=== PATIENT | female | born 1995 | race Caucasian/White ===

== ENCOUNTER 2016-08-28 10:17 | Emergency (ER) | payer BC, OTHER ==
[2016-08-28] MEDS ORDERED: Sodium Chloride 0.9% 10 ML Syringe FLUSH PRN (10:42)
[2016-08-28] MEDS ORDERED: HYDROmorphone 0.5 MG/0.5 ML Syringe IVPUSH ONE ×2 (10:46→11:59)
--- NOTE | 2016-08-28 12:17 | CT ---
Head CT Technique: Multiple axial sections through the brain were obtained. Intravenous contrast was not utilized. Comparison: No previous study. Findings: Ventricles along with basal cisterns and sulci over the convexities appear within normal limits for the patient's age. No abnormal parenchymal densities are seen. No evidence of intracranial hemorrhage. No midline shift or mass effect is seen. Calcified drusen noted within both posterior orbits. Bone window settings were reviewed which shows the visualized sinuses to appear clear. No acute calvarial abnormality is seen. Impression: 1. Calcified drusen within both posterior orbits. 2. No additional abnormality is identified on noncontrast head CT study. Diagnostic code #1
[2016-08-28] MEDS ORDERED: Prochlorperazine 10 MG/2 ML SDV IVPUSH ONE (12:46)
[2016-08-28] MEDS ORDERED: Ketorolac 30 MG/ML SDV IVPUSH ONE (12:47)
[2016-08-28] MEDS ORDERED: diphenhydrAMINE 50 MG/ML SDV IVPUSH ONE (12:47)
--- NOTE | 2016-08-28 12:58 | EDM.PDOC ---
ED HPI EYE COMPLAINT - General Chief Complaint: Eye Problems Stated Complaint: BLURRY VISION- SENT BY EYE DOCTOR Time Seen by Provider: 08/28/16 10:26 Source: Reports: Patient, Provider History Limitations: Reports: No limitations - History of Present Illness INITIAL COMMENTS - FREE TEXT/NARRATIVE: The patient presents with vision changes over the past month. She has had blurred vision but no double vision along with headaches. She denies numbness or weakness. Her mother has a history of Arnold Chiari malformation and needed surgery. She is worried she may have it. 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 He sent her over here for MRI. She denies any medical problems. Timing/Duration: Reports: Week(s): (4) Location: both Quality: Reports: Pressure Severity: moderate Improves with: Reports: None Worsens with: Reports: None Associated Symptoms (Eye): Reports: pain, decreased/blurred - Related Data Allergies/ADRs: Allergies No Known Allergies Allergy (Verified 08/28/16 10:35) Home Meds: Ambulatory Orders Medication Instructions Recorded Confirmed Esomeprazole Magnesium [Nexium 20 mg PO DAILY 08/28/16 08/28/16 24Hr] Past Medical History HEENT History: Reports: None Cardiovascular History: Reports: None Respiratory History: Reports: None Gastrointestinal History: Reports: GERD, Other (see below) Other Gastrointestinal History: epigastric pain Genitourinary History: Reports: None 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: 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 History: Reports: None Neurological History: Reports: None Psychiatric History: Reports: None Endocrine/Metabolic History: Reports: None Hematologic History: Reports: None Immunologic History: Reports: None Oncologic (Cancer) History: Reports: None Other Dermatologic History: cyst removal from hand - Past Surgical History Head Surgeries/Procedures: Reports: None GI Surgical History: Reports: Cholecystectomy Social & Family History - Tobacco Use Smoking Status *Q: Current Every Day Smoker Years of Tobacco use: 6 Packs/Tins Daily: 0.5 - Caffeine Use Caffeine Use: Reports: None - Recreational Drug Use Recreational Drug Use: No - Living Situation & Occupation Living situation: Reports: single, with family Occupation: employed ([employer]) ED ROS GENERAL - Review of Systems Review Of Systems: See Below Constitutional: Reports: no symptoms HEENT: Reports: Vision change Respiratory: Reports: No Symptoms Cardiovascular: Reports: No symptoms Endocrine: Reports: no symptoms GI/Abdominal: Reports: No symptoms : Reports: no symptoms 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: Reports: no symptoms Skin: Reports: no symptoms Neurological: Reports: Headache ED EXAM GENERAL W FULL EYE - Physical Exam Exam: See Below Exam Limited By: No limitations General Appearance: alert, no apparent distress Eye Exam: bilateral eye: EOMI, PERRL Eyelids: bilateral: normal appearance Conjunctiva & Sclera: bilateral: normal appearance Extraocular Movements: bilateral: intact Nose: normal inspection Head: atraumatic, normocephalic Neck: normal inspection Respiratory/Chest: no respiratory distress, lungs clear, normal breath sounds GI/Abdominal: soft, non tender, no organomegaly Extremities: normal inspection Neurological: alert, oriented, no motor/sensory deficits Course - Vital Signs Last Recorded V/S: Last Vital Signs Temp 97.3 F 08/28/16 10:20 Pulse 84 08/28/16 10:20 Resp 16 08/28/16 10:20 BP 112/70 08/28/16 10:20 Pulse Ox 97 08/28/16 10:20 - Orders/Labs/Meds Orders: Active Orders 24 hr Category Date Time Status Cardiac Monitoring [RC] . DIRECTED Care 08/28/16 10:45 Active Peripheral IV Care [RC] . DIRECTED Care 08/28/16 10:46 Active Sodium Chloride 0.9% [Saline Flush] Med 08/28/16 10:42 Active 10 ml FLUSH ASDIRECTED PRN Peripheral IV Insertion Adult [OM.PC] Stat Oth 08/28/16 10:42 Ordered Medication Orders Sodium Chloride (Saline Flush) 10 ml FLUSH ASDIRECTED PRN PRN Reason: Keep Vein Open Last Admin: 08/28/16 11:09 Dose: 10 ml Labs: Laboratory Tests 08/28/16 08/28/16 08/28/16 Range/Units 10:55 10:55 10:55 WBC 8.47 (3.98-10.04) K/mm3 RBC 4.91 (3.98-5.22) M/mm3 Hgb 13.5 (11.2-15.7) gm/L Hct 41.6 (34.1-44.9) % MCV 84.7 (79.4-94.8) fl MCH 27.5 (25.6-32.2) pg MCHC 32.5 (32.2-35.5) g/dl RDW Std Deviation 44.4 (36.4-46.3) fL Plt Count 298 (182-369) K/mm3 MPV 9.9 (9.4-12.3) fl Neut % (Auto) 64.1 (34.0-71.1) % Lymph % (Auto) 26.4 (19.3-51.7) % Winkler % (Auto) 7.9 (4.7-12.5) % Eos % (Auto) 1.2 (0.7-5.8) Baso % (Auto) 0.2 (0.1-1.2) % Neut # (Auto) 5.42 (1.56-6.13) K/mm3 Lymph # (Auto) 2.24 (1.18-3.74) K/mm3 Winkler # (Auto) 0.67 H (0.24-0.36) K/mm3 Eos # (Auto) 0.10 (0.04-0.36) K/mm3 Baso # (Auto) 0.02 (0.01-0.08) K/mm3 Sodium 142 (136-145) mEq/L Potassium 4.2 (3.5-5.1) mEq/L Chloride 107 (98-107) mEq/L Carbon Dioxide 25 (21-32) mEq/L Anion Gap 14.2 (5-15) BUN 13 (7-18) mg/dL Creatinine 0.7 (0.55-1.02) mg/dL Est Cr Clr Drug Dosing 114.40 mL/min Estimated GFR (MDRD) > 60 (>60) mL/min BUN/Creatinine Ratio 18.6 H (14-18) Glucose 97 (74-106) mg/dL Calcium 9.0 (8.5-10.1) mg/dL Total Bilirubin 0.4 (0.2-1.0) mg/dL AST 20 (15-37) U/L ALT 68 H (14-59) U/L Alkaline Phosphatase 99 (46-116) U/L Troponin I < 0.017 (0.00-0.056) ng/mL Total Protein 7.6 (6.4-8.2) g/dl Albumin 3.9 (3.4-5.0) g/dl Globulin 3.7 gm/dL Albumin/Globulin Ratio 1.1 (1-2) HCG, Qual Negative (NEGATIVE) Meds: Medications Generic Name Dose Route Start Last Admin Trade Name Freherb PRN Reason Stop Dose Admin Sodium Chloride 10 ml 08/28/16 10:42 08/28/16 11:09 Saline Flush FLUSH 10 ml ASDIRECTED PRN Administration Keep Vein Open Discontinued Medications Generic Name Dose Route Start Last Admin Trade Name Wesley PRN Reason Stop Dose Admin Diphenhydramine HCl 50 mg 08/28/16 12:47 08/28/16 13:38 Benadryl IVPUSH 08/28/16 12:48 50 mg ONETIME ONE Administration Hydromorphone HCl 0.5 mg 08/28/16 10:46 08/28/16 11:07 Dilaudid IVPUSH 08/28/16 10:47 0.5 mg ONETIME ONE Administration Hydromorphone HCl 0.5 mg 08/28/16 11:59 08/28/16 12:06 Dilaudid IVPUSH 08/28/16 12:00 0.5 mg ONETIME ONE Administration Ketorolac Tromethamine 30 mg 08/28/16 12:47 08/28/16 13:40 Toradol IVPUSH 08/28/16 12:48 30 mg ONETIME ONE Administration Prochlorperazine Edisylate 10 mg 08/28/16 12:46 08/28/16 13:36 Compazine IVPUSH 08/28/16 12:47 10 mg ONETIME ONE Administration - Re-Assessments/Exams Free Text/Narrative Re-Assessment/Exam: 08/28/16 12:59 I ordered an IV, zofran 4mg IV and dilaudid. I will get a CT of her head and labs. Her labs looked good. The CT shows calcified drusen within both posterior orbits. I have an MRI of her brain ordered. She had more pain so I ordered another dose of dilaudid. That did not help so I will try some compazine 10mg IV, toradol 30mg IV and benadryl 50mg IV. 08/28/16 14:04 The MRI of her brain showed an incidental retention cyst. She feels better. She just found out her grandfather and she needs to go. It appears this may be the calcified drusens. Departure - Departure Time of Disposition: 14:10 Disposition: Home, Self-Care 01 Condition: good Clinical Impression: Drusen of eye Headache Qualifiers: Headache type: unspecified Headache chronicity pattern: unspecified pattern Intractability: not intractable Qualified Code(s): R51 - Headache Referrals: Amber Krishnan PA [Primary Care Provider] - 1 Week Michael Betancourt MD [Physician] - 2 Weeks Forms: ED Department Discharge Additional Instructions: Follow up with Dr Escalera within a week. Follow up with Dr Mccallum the neurologist at [facility] in [place]. Please take A-reds and fish oil to help with the drusens. Please return if your headache is worse, if you have numbness or weakness, or vision changes. - My Orders Last 24 Hours: My Active Orders 08/28/16 10:42 Sodium Chloride 0.9% [Saline Flush] 10 ml FLUSH ASDIRECTED PRN Peripheral IV Insertion Adult [OM.PC] Stat 08/28/16 10:45 Cardiac Monitoring [RC] . DIRECTED 08/28/16 10:46 Peripheral IV Care [RC] . DIRECTED - Assessment/Plan Last 24 Hours: My Active Orders 08/28/16 10:42 Sodium Chloride 0.9% [Saline Flush] 10 ml FLUSH ASDIRECTED PRN Peripheral IV Insertion Adult [OM.PC] Stat 08/28/16 10:45 Cardiac Monitoring [RC] . DIRECTED 08/28/16 10:46 Peripheral IV Care [RC] . DIRECTED
--- NOTE | 2016-08-28 13:42 | MR ---
MRI brain Technique: T1 sagittal; T2, T2 FLAIR, diffusion and T1 axial; T1 FLAIR coronal images were also obtained through the brain. Comparison: Previous head CT study performed earlier on the same day. Findings: Right and left globes are symmetric. No retrobulbar mass is seen. Extraocular muscles and optic nerves are symmetric. Ventricles along with basal cisterns and sulci over convexities are within normal limits. Normal signal void is seen within the major cerebral arteries within the skull base. Small retention cyst incidentally is noted within the upper right maxillary sinus measuring 1.0 cm. No abnormal signal is seen within the brain parenchyma. No midline shift or mass effect is seen. No acute diffusion abnormalities are identified. Impression: 1. Incidental retention cyst. MRI study of the brain is otherwise unremarkable. Diagnostic code #2
[2016-08-28 14:26] VITALS: BP 128/60
== END 2016-08-28 14:15 | disposition home or self-care (01) ==
LOC: JD.ED 10:17 → SUPCPDRO 10:17 → JD.ED 14:15
DX: H47.323 Drusen of optic disc, bilateral (principal); R51 Headache; K21.9 Gastro-esophageal reflux disease without esophagitis; F17.200 Nicotine dependence, unspecified, uncomplicated
CPT/HCPCS: 36415; 70450; 70551; 80053; 84484; 84703; 85025; 96374; 96375; 96376; 99284; J0780; J1170; J1200; J1885; J7050

== ENCOUNTER 2016-11-02 06:22 | Emergency (ER) | payer BC, MEDICAID ==
--- NOTE | 2016-11-02 06:45 | EDM.PDOC ---
ED HPI GENERAL MEDICAL PROBLEM - General Chief Complaint: Lower Extremity Injury/Pain Stated Complaint: RT KNEE PAIN Time Seen by Provider: 11/02/16 06:39 Source of Information: Reports: Patient History Limitations: Reports: No Limitations - History of Present Illness INITIAL COMMENTS - FREE TEXT/NARRATIVE: 21-year-old female presents the ED with reported fall in the parking lot at [employer] last evening at about 2130 hours. She fell with direct blow to the anterior aspect of her right knee. Overnight the swelling is increased traumatically in over the kneecap and she is unable to weight-bear without keeping the leg extremely straight. She states the pain kept her awake a good portion of the night. There is a superficial abrasions over the kneecap as well. She believes her tetanus toxoid is up to date. Onset: Sudden Onset Date: 11/01/16 Onset Time: 21:30 (Tripped up and fell in the parking lot at [email or web address] last night.) Duration: Hour(s):, Getting Worse Location: Reports: Lower Extremity, Right (Right knee.) Quality: Reports: Burning, Throbbing Severity: Moderate Improves with: Reports: None Worsens with: Reports: None Context: Reports: Other (Slipped and fell.). 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 Right Knee Pain Score (Numeric/FACES): 9 - Related Data Allergies Allergy/AdvReac Type Severity Reaction Status Date / Time No Known Allergies Allergy Verified 11/02/16 06:31 Home Meds: Home Meds oxyCODONE HCl/Acetaminophen [Percocet 5-325 mg Tablet] 1 - 2 each PO Q4H PRN # 20 tablet 11/02/16 [Rx] Past Medical History HEENT History: Reports: None Cardiovascular History: Reports: None Respiratory History: Reports: None Gastrointestinal History: Reports: GERD Other Gastrointestinal History: epigastric pain Genitourinary History: Reports: None 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: 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 History: Reports: None Neurological History: Reports: None Psychiatric History: Reports: None Endocrine/Metabolic History: Reports: None Hematologic History: Reports: None Immunologic History: Reports: None Oncologic (Cancer) History: Reports: None Other Dermatologic History: cyst removal from hand - Past Surgical History GI Surgical History: Reports: Cholecystectomy 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 Surgical History: Reports: Arthroscopic Knee (Left knee.) Social & Family History - Family History Family Medical History: Noncontributory - Tobacco Use Smoking Status *Q: Current Every Day Smoker Years of Tobacco use: 5 Packs/Tins Daily: 0.5 - Caffeine Use Caffeine Use: Reports: Coffee, Energy Drinks - Recreational Drug Use Recreational Drug Use: No - Living Situation & Occupation Living situation: Reports: Single, with Family Occupation: Employed Review of Systems - Review of Systems Review Of Systems: See Below Constitutional: Reports: No Symptoms Eyes: Reports: No Symptoms Ears: Reports: No Symptoms Nose: Reports: No Symptoms Mouth/Throat: Reports: No Symptoms Respiratory: Reports: No Symptoms Cardiovascular: Reports: No Symptoms GI/Abdominal: Reports: No Symptoms Genitourinary: Reports: No Symptoms 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: Reports: Joint Pain (Right knee. See history present illness) Skin: Reports: No Symptoms Neurological: Reports: No Symptoms Psychiatric: Reports: No Symptoms ED EXAM, GENERAL - Physical Exam Exam: See Below Exam Limited By: No Limitations General Appearance: Alert, Moderate Distress (Very apprehensive about any examination of the knee.) Peripheral Pulses: 3+: Posterior Tibial (L), Posterior Tibial (R), Dorsalis Pedis (L), Dorsalis Pedis (R) Extremities: Other (He has marked swelling over the patella of the right knee. There are superficial abrasions as well. There is no true effusion in the knee. Concern for possible patellar fracture evident on exam. She is very reluctant to try and flex the knee.) Neurological: Alert, Oriented, CN II-XII Intact, Normal Cognition. No: Normal Gait Psychiatric: Normal Affect, Anxious Skin Exam: Warm, Dry, Intact, Normal Color Course - Vital Signs Last Recorded V/S: Last Vital Signs Temp 36.2 C 11/02/16 06:27 Pulse 89 11/02/16 06:27 Resp 18 11/02/16 06:27 BP 117/60 11/02/16 06:27 Pulse Ox 97 11/02/16 06:27 - Orders/Labs/Meds Orders: Active Orders 24 hr Category Date Time Status Knee 3V Rt [CR] Stat Exams 11/02/16 06:42 Taken Meds: Medications Discontinued Medications Generic Name Dose Route Start Last Admin Trade Name Freq PRN Reason Stop Dose Admin Ibuprofen 600 mg 11/02/16 06:46 Motrin PO 11/02/16 06:47 ONETIME ONE Metoclopramide HCl 10 mg 11/02/16 06:47 Reglan PO 11/02/16 06:48 ONETIME ONE Oxycodone/Acetaminophen 2 tab 11/02/16 06:47 Percocet 325-5 Mg PO 11/02/16 06:48 ONETIME ONE - Radiology Interpretation Free Text/Narrative:: 21-year-old female reports that she tripped up and fell with direct blow to her right knee last night at [employer] at about 2130 hours. Overnight the areas become more painful and more swollen. Today she can weight-bear but with only walking with her leg typically straight. Examination reveals marked swelling over the prepatellar bursa and the patella itself. Appears to be no true knee effusion. Pain limits ability to examine ligament structures. Plan x- rays of the knee will be done first to see if there is a fracture of the patella. - Re-Assessments/Exams Free Text/Narrative Re-Assessment/Exam: 11/02/16 07:05 x-rays of the right knee are within normal limits. There is no obvious effusion in the joint. No bony injuries identified particular to the patella. Clinically she has developed a prepatellar bursitis or hemorrhage into the prepatellar bursa that is causing most of her pain and limited range of motion. Plan she'll be placed in a short knee immobilizer and because walking nonweightbearing for the next 3-5 days. She will use Aleve 2 tablets every 8 hours for reduction of pain and inflammation. I will send her home with 16 tablets of Percocet 5 325 one or 2 every 4-6 hours for pain relief not controlled by Aleve alone. She has limited cover her sugars today and she is off work for the next 3-4 days. Advise to cleanse her wound and apply bacitracin ointment to the superficial abrasion on the patella. Departure - Departure Time of Disposition: 07:07 Disposition: Home, Self-Care 01 Condition: fair Clinical Impression: Prepatellar bursitis of right knee Contusion, knee Qualifiers: Encounter type: initial encounter Laterality: left Qualified Code(s): S80.02XA - Contusion of left knee, initial encounter - Discharge Information Prescriptions: oxyCODONE HCl/Acetaminophen [Percocet 5-325 mg Tablet] 1 - 2 each PO Q4H PRN # 20 tablet PRN Reason: pain relief. Forms: ED Department Discharge Additional Instructions: Evaluation in the emergency room this morning in regards to a fall he sustained last night with blunt force trauma to the right anterior knee. Swelling is localized to the patella and prepatellar bursa on top of the kneecap. X-rays of the knee were obtained and do not reveal any fractures or true joint effusion. Recommend treatment to be short knee immobilizer on during the day and off at night. Nonweightbearing crutch walking for the next 3-5 days. Ice pack to the area one half hour out of every 4 hours to reduce swelling. Topical antibiotic such as bacitracin or Polysporin to the abrasions at least once daily for the next 3-5 days to prevent secondary wound infection. Suggest Aleve 2 tablets every 8 hours to reduce pain and inflammation. He is Percocet tablets 5-325 one or 2 every 4-6 hours for pain not relieved by Aleve alone. Followup with personal physician if unable to return to work as planned next week. - My Orders Last 24 Hours: My Active Orders 11/02/16 06:42 Knee 3V Rt [CR] Stat - Assessment/Plan Last 24 Hours: My Active Orders 11/02/16 06:42 Knee 3V Rt [CR] Stat
[2016-11-02] MEDS ORDERED: Ibuprofen 600 MG Tab PO ONE (06:46)
[2016-11-02] MEDS ORDERED: Metoclopramide 10 MG Tab PO ONE (06:47)
[2016-11-02] MEDS ORDERED: Acetaminophen/oxyCODONE 325-5 MG Tab PO ONE (06:47)
[2016-11-02 09:07] VITALS: BP 110/64
--- NOTE | 2016-11-02 09:39 | CR ---
Right knee: AP, lateral and sunrise patellar views of the right knee were obtained. Comparison: No previous knee study. Detached anterior tibial tuberosity is seen which appears old. Patellofemoral joint appears normal. Medial and lateral joint spaces are maintained in height. No acute fracture or other abnormality is seen. Impression: 1. Incidental finding. Nothing acute is seen on three-view right knee exam. Diagnostic code #2
== END 2016-11-02 09:07 | disposition home or self-care (01) ==
LOC: JD.ED 06:22
DX: S80.02XA Contusion of left knee, initial encounter (principal); M70.41 Prepatellar bursitis, right knee; Z90.49 Acquired absence of other specified parts of digestive tract; Z98.890 Other specified postprocedural states; F17.210 Nicotine dependence, cigarettes, uncomplicated; W19.XXXA Unspecified fall, initial encounter; Y92.481 Parking lot as the place of occurrence of the external cause
CPT/HCPCS: 73562; 99283; A9270

== ENCOUNTER 2016-12-29 01:01 | Emergency (ER) | payer MEDICAID ==
[2016-12-29 01:12] VITALS: BP 116/82
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
== END 2016-12-29 05:06 | disposition home or self-care (01) ==
LOC: JD.ED 01:01
DX: T76.21XA Adult sexual abuse, suspected, initial encounter (principal); K21.9 Gastro-esophageal reflux disease without esophagitis; F17.210 Nicotine dependence, cigarettes, uncomplicated; Z90.49 Acquired absence of other specified parts of digestive tract
CPT/HCPCS: 80306; 99283

== ENCOUNTER 2017-05-03 17:42 | Emergency (ER) | payer MEDICAID ==
[2017-05-03 18:06] VITALS: BP 118/87
[2017-05-03] MEDS ORDERED: Ketorolac 60 MG/2 ML SDV IM ONE (18:19)
--- NOTE | 2017-05-03 18:30 | EDM.PDOC ---
ED HPI GENERAL MEDICAL PROBLEM - General Chief Complaint: ENT Problem Stated Complaint: POSS EAR INFECTION Time Seen by Provider: 05/03/17 18:05 Source of Information: Reports: Patient History Limitations: Reports: No Limitations - History of Present Illness INITIAL COMMENTS - FREE TEXT/NARRATIVE: 21 year old female presents for evaluation and treatment of left ear pain. Patient reports she has had a sore throat for the last 5 days. Today she then developed severe left ear pain. Current associated symptoms of nausea, malaise, headaches, cough, fevers and chills. Denies any vomiting. Denies any recent travel. Patient did get a flu shot this year. left ear/throat Pain Score (Numeric/FACES): 7 - Related Data Allergies Allergy/AdvReac Type Severity Reaction Status Date / Time No Known Allergies Allergy Verified 05/03/17 18:06 Home Meds: Home Meds Acetaminophen/oxyCODONE [Percocet 325-5 MG] 1 tab PO Q6H PRN #6 tablet 05/03/17 [Rx] Amoxicillin 500 mg PO Q8HR #60 capsule 05/03/17 [Rx] Past Medical History - Past Health History Medical/Surgical History: Denies Medical/Surgical History HEENT History: Reports: None Cardiovascular History: Reports: None Respiratory History: Reports: None Gastrointestinal History: Reports: GERD Other Gastrointestinal History: epigastric pain Genitourinary History: Reports: None 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: 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 History: Reports: None Neurological History: Reports: None Psychiatric History: Reports: None Endocrine/Metabolic History: Reports: None Hematologic History: Reports: None Immunologic History: Reports: None Oncologic (Cancer) History: Reports: None Other Dermatologic History: cyst removal from hand - Past Surgical History Head Surgeries/Procedures: Reports: None GI Surgical History: Reports: Cholecystectomy 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 Surgical History: Reports: Arthroscopic Knee Social & Family History - Family History Family Medical History: Noncontributory - Tobacco Use Smoking Status *Q: Current Every Day Smoker Years of Tobacco use: 3 Packs/Tins Daily: 0.5 - Caffeine Use Caffeine Use: Reports: Soda - Recreational Drug Use Recreational Drug Use: No Drug Use in Last 12 Months: Yes Recreational Drug Type: Reports: Marijuana/Hashish - Living Situation & Occupation Living situation: Reports: Single, with Family Occupation: Employed ED ROS ENT - Review of Systems Review Of Systems: See Below Constitutional: Reports: Fever (intermittent), Chills, Malaise HEENT: Reports: Ear Pain (left), Throat Pain Respiratory: Reports: Cough GI/Abdominal: Reports: Nausea. Denies: Vomiting Neurological: Reports: Headache ED EXAM, ENT - Physical Exam Exam: See Below Exam Limited By: No Limitations General Appearance: Alert, WD/WN, No Apparent Distress Eye Exam: Bilateral Eye: Normal Inspection Ears: Normal External Exam, Normal Canal, TM Erythema (bilateral), TM Fluid ( left prurlent). No: TM Bulging Nose: Normal Inspection Mouth/Throat: Normal Inspection, Normal Gums, Normal Lips, Pharyngeal Erythema, Tonsillar Erythema Respiratory/Chest: No Respiratory Distress, Lungs Clear, Normal Breath Sounds Cardiovascular: Normal Peripheral Pulses, Regular Rate, Rhythm, No Murmur Neurological: Alert, Oriented, Normal Cognition Psychiatric: Normal Affect, Normal Mood Skin: Warm, Dry Course - Vital Signs Last Recorded V/S: Last Vital Signs Temp 36.6 C 05/03/17 17:50 Pulse 100 05/03/17 17:50 Resp 18 05/03/17 17:50 BP 118/87 05/03/17 17:50 Pulse Ox 98 05/03/17 17:50 - Orders/Labs/Meds Meds: Medications Discontinued Medications Generic Name Dose Route Start Last Admin Trade Name Darrynq PRN Reason Stop Dose Admin Ketorolac Tromethamine 60 mg 05/03/17 18:19 05/03/17 18:37 Toradol IM 05/03/17 18:20 60 mg ONETIME ONE Administration - Re-Assessments/Exams Free Text/Narrative Re-Assessment/Exam: 05/03/17 19:39 Rapid flu return negative. Rapid strep returned negative. . We'll treat for an ear infection with amoxicillin. have Her follow-up in the clinic if symptoms do not improve much in one week. Discharge instructions as documented. Departure - Departure Time of Disposition: 19:40 Disposition: Home, Self-Care 01 Condition: Fair Clinical Impression: Otitis media Qualifiers: Otitis media type: suppurative Chronicity: acute Laterality: left Recurrence: not specified as recurrent Spontaneous tympanic membrane rupture: without spontaneous rupture Qualified Code(s): H66.002 - Acute suppurative otitis media without spontaneous rupture of ear drum, left ear - Discharge Information Prescriptions: Amoxicillin 500 mg PO Q8HR #60 capsule Acetaminophen/oxyCODONE [Percocet 325-5 MG] 1 tab PO Q6H PRN #6 tablet PRN Reason: Pain Instructions: Otitis Media, Adult, [id number] Referrals: PCP,None [Primary Care Provider] - Forms: ED Department Discharge Additional Instructions: Amoxicillin 1 g every 8 hours. Recommend taking this medication with food. Start yogurt or probiotic to help reduce upset stomach and diarrhea. [id number] Tylenol or Motrin as needed for pain relief. For pain not relieved by Tylenol or Motrin Percocet 1/2 to 1 tab every 4-[address] operative machinery within 12 hours of taking Percocet. Percocet can habit forming, I recommend you take as few of these as needed to control her pain. Do not take more than 4 g of Tylenol from all sources in 1 day. Follow-up with family medicine if your symptoms are not much better in 7-10 days. Recommend Suze Lorenzana at the [facility]. Please call to schedule with her. Please return to the ER for symptoms change or worsen.
== END 2017-05-03 19:55 | disposition home or self-care (01) ==
LOC: JD.ED 17:42
DX: H66.002 Acute suppurative otitis media without spontaneous rupture of ear drum, left ear (principal); F17.210 Nicotine dependence, cigarettes, uncomplicated
CPT/HCPCS: 87081; 87430; 87804; 96372; 99283; J1885

== ENCOUNTER 2017-06-04 15:43 | Emergency (ER) | payer MEDICAID ==
[2017-06-04 16:21] VITALS: BP 119/78
[2017-06-04] MEDS ORDERED: Ondansetron 4 MG Tab.DIS PO ONE (16:43)
[2017-06-04] MEDS ORDERED: Ketorolac 60 MG/2 ML SDV IM ONE (16:43)
--- NOTE | 2017-06-04 16:50 | EDM.PDOC ---
ED HPI GENERAL MEDICAL PROBLEM - General Chief Complaint: Respiratory Problem Stated Complaint: FEVER,CHILLS,COUGH,VOMITING Time Seen by Provider: 06/04/17 16:32 Source of Information: Reports: Patient History Limitations: Reports: No Limitations - History of Present Illness INITIAL COMMENTS - FREE TEXT/NARRATIVE: Patient is a 22-year-old female presents ED complaining of sinus congestion, sore throat, productive cough with white phlegm, nausea with a few episodes of emesis, diarrhea few episodes, generalized body aches, and mild headache. This started last night. She's had no diarrhea over the past few hours. She has been drinking plenty of water and able to keep down. Appetite is poor. She has generalized body aches and has not taken any [id number] medications such as Tylenol or or Motrin. There's been no documented fever. She did not receive the influenza vaccination this year. Sick exposures high with area of employment. 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: 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 History: Reports: None Neurological History: Reports: None Psychiatric History: Reports: None Endocrine/Metabolic History: Reports: None Hematologic History: Reports: None Immunologic History: Reports: None Oncologic (Cancer) History: Reports: None Other Dermatologic History: cyst removal from hand - Past Surgical History Head Surgeries/Procedures: Reports: None GI Surgical History: Reports: Cholecystectomy 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 Surgical History: Reports: Arthroscopic Knee, Other (See Below) Other 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 Surgeries/Procedures:: ganglian cyst removal of hand Social & Family History - Family History Family Medical History: Noncontributory - Tobacco Use Smoking Status *Q: Current Every Day Smoker Years of Tobacco use: 6 Packs/Tins Daily: 0.5 - Caffeine Use Caffeine Use: Reports: None - Recreational Drug Use Recreational Drug Use: No Drug Use in Last 12 Months: Yes Recreational Drug Type: Reports: Marijuana/Hashish - Living Situation & Occupation Living situation: Reports: Single, with Family Occupation: Employed ED ROS GENERAL - Review of Systems Review Of Systems: See Below Constitutional: Reports: Chills, Malaise, Decreased Appetite. Denies: Fever HEENT: Reports: Sinus Problem, Throat Pain. Denies: Ear Pain Respiratory: Reports: Cough, Sputum. Denies: Shortness of Breath Cardiovascular: Reports: No Symptoms GI/Abdominal: Reports: Diarrhea (Few episodes), Nausea. Denies: Vomiting : Denies: Dysuria 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: Reports: Muscle Pain (Generalized) Neurological: Reports: Headache (Mild) ED EXAM, GENERAL - Physical Exam Exam: See Below Exam Limited By: No Limitations General Appearance: Alert, WD/WN, Mild Distress Eye Exam: Bilateral Eye: PERRL Ears: Hearing Grossly Normal Nose: Nasal Swelling, Nasal Drainage, Clear Rhinorrhea Throat/Mouth: Normal Voice, No Airway Compromise, Other (Mild redness to the posterior pharynx. No exudates to the tonsils noted.) Neck: Normal Inspection, Supple Respiratory/Chest: No Respiratory Distress, Lungs Clear, Normal Breath Sounds, No Accessory Muscle Use, Chest Non-Tender Cardiovascular: Normal Peripheral Pulses, Regular Rate, Rhythm GI/Abdominal: Normal Bowel Sounds, Soft, Non-Tender, No Organomegaly, No Distention Back Exam: Normal Inspection Neurological: Alert, Oriented, CN II-XII Intact, Normal Cognition, No Motor/ Sensory Deficits Psychiatric: Normal Affect, Normal Mood Skin Exam: Warm, Dry, Intact, Normal Color Course - Vital Signs Last Recorded V/S: Last Vital Signs Temp 98.3 F 06/04/17 16:10 Pulse 110 H 06/04/17 16:10 Resp 18 06/04/17 16:10 BP 119/78 06/04/17 16:10 Pulse Ox 98 06/04/17 16:10 - Orders/Labs/Meds Orders: Active Orders 24 hr Category Date Time Status CULTURE STREP A CONFIRMATION [] Stat Lab 06/04/17 16:30 Results STREP SCRN A RAPID W CULT CONF [] Stat Lab 06/04/17 16:30 Results Meds: Medications Discontinued Medications Generic Name Dose Route Start Last Admin Trade Name Freq PRN Reason Stop Dose Admin Ketorolac Tromethamine 60 mg 06/04/17 16:43 06/04/17 17:05 Toradol IM 06/04/17 16:44 60 mg ONETIME ONE Administration Ondansetron HCl 4 mg 06/04/17 16:43 06/04/17 17:05 Zofran Odt PO 06/04/17 16:44 4 mg ONETIME ONE Administration - Re-Assessments/Exams Free Text/Narrative Re-Assessment/Exam: Symptoms started last night. Presumably this is viral. 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 Sick exposures high. Ordered a strep and influenza screen. For generalized body aches ordered Toradol 60 milligrams IM and also Zofran 4 mg ODT for nausea. Patient agrees no blood work cxr is required at this time. 06/04/17 17:27 Influenza and strep screen were negative. Will discharge patient home with instructions as documented. Departure - Departure Time of Disposition: 17:28 Disposition: Home, Self-Care 01 Condition: Good Clinical Impression: Viral upper respiratory tract infection with cough, Gastroenteritis - Discharge Information Prescriptions: Ondansetron [Zofran ODT] 4 mg PO Q6H PRN #10 tab.dis PRN Reason: Nausea/Vomiting Instructions: Upper Respiratory Infection, Adult, [id number] Referrals: PCP,None [Primary Care Provider] - Forms: ED Department Discharge Additional Instructions: As discussed suspect cause of upper respiratory symptoms and also GI symptoms are viral in nature. Strep and influenza screen were both negative. Will have you take Zofran 4 mg ODT every 6 hours as needed for nausea and vomiting. Push the fluids. Stick with a bland diet as tolerated. Utilize Tylenol and ibuprofen in alternating fashion for generalized body aches and fever if one develops. Follow-up with primary care provider this coming week as needed. Return to the ED as needed for any new or worsening symptoms. - My Orders Last 24 Hours: My Active Orders 06/04/17 16:30 CULTURE STREP A CONFIRMATION [RM] Stat STREP SCRN A RAPID W CULT CONF [RM] Stat - Assessment/Plan Last 24 Hours: My Active Orders 06/04/17 16:30 CULTURE STREP A CONFIRMATION [RM] Stat STREP SCRN A RAPID W CULT CONF [RM] Stat
== END 2017-06-04 18:08 | disposition home or self-care (01) ==
LOC: JD.ED 15:43
DX: K52.9 Noninfective gastroenteritis and colitis, unspecified (principal); J06.9 Acute upper respiratory infection, unspecified; F17.210 Nicotine dependence, cigarettes, uncomplicated
CPT/HCPCS: 87081; 87430; 87804; 96372; 99284; A9270; J1885; 99283

== ENCOUNTER 2017-07-14 19:01 | Emergency (ER) | payer MEDICAID ==
[2017-07-14 19:32] VITALS: BP 129/92
[2017-07-14] MEDS ORDERED: Ketorolac 30 MG/ML SDV IVPUSH ONE (20:03)
[2017-07-14] MEDS ORDERED: Ondansetron 4 MG/2 ML SDV IVPUSH ONE (20:03)
--- NOTE | 2017-07-14 20:12 | EDM.PDOC ---
<LissethDana M - Last Filed: 07/14/17 22:02> ED HPI GENERAL MEDICAL PROBLEM - General Chief Complaint: Abdominal Pain Stated Complaint: LOWER ABDOMINAL PAIN PAIN WHEN URINE Time Seen by Provider: 07/14/17 19:35 Source of Information: Reports: Patient History Limitations: Reports: No Limitations - History of Present Illness INITIAL COMMENTS - FREE TEXT/NARRATIVE: Jolene is a 22yo female presents ambulatory to ED this evening with 2 day hx of pelvic pain. She denies f/c/s, n/v/d. Moved her bowel normally today without hematochezia/melena. She has Mirena IUD since 2016. She does not have periods or spotting with this since that time. She noted approximately 20 minutes of bleeding and clots vaginally today while on the toilet and bearing down. No further bleeding since that time. She is sexually active, notes no vaginal discharge or odor. She does not feel for her IUD strings and is unsure if it is still there. She has 3 children. No prior hx of pelvic pain, ovarian cysts or other abdominal/pelvic problems. Onset: Gradual Duration: Day(s): (2), Getting Worse Location: Reports: Pelvis Quality: Reports: Ache, Sharp, Stabbing Severity: Moderate Improves with: Reports: None Worsens with: Reports: None Associated Symptoms: Reports: No Other Symptoms. Denies: Chest Pain, Cough, Diaphoresis, Fever/Chills, Headaches, Loss of Appetite, Nausea/Vomiting, Shortness of Breath Treatments SENIOR BIOSTATISTICIAN: Reports: Acetaminophen Pelvic Pain Score (Numeric/FACES): 10 - Related Data Allergies Allergy/AdvReac Type Severity Reaction Status Date / Time No Known Allergies Allergy Verified 07/14/17 19:24 Home Meds: Home Meds metroNIDAZOLE [Flagyl] 500 mg PO Q8H #21 tab 07/14/17 [Rx] Past Medical History - Past Health History Medical/Surgical History: Denies Medical/Surgical History HEENT History: Reports: None Cardiovascular History: Reports: None Respiratory History: Reports: None Gastrointestinal History: Reports: GERD Other Gastrointestinal History: epigastric pain Genitourinary History: Reports: None TRAINING ENGINEER History: Reports: 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 History: Reports: None Neurological History: Reports: None Psychiatric History: Reports: None Endocrine/Metabolic History: Reports: None Hematologic History: Reports: None Immunologic History: Reports: None Oncologic (Cancer) History: Reports: None Other Dermatologic History: cyst removal from hand - Past Surgical History Head Surgeries/Procedures: Reports: None GI Surgical History: Reports: Cholecystectomy 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 Surgical History: Reports: Arthroscopic Knee, Other (See Below) Other 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 Surgeries/Procedures:: ganglian cyst removal of hand Social & Family History - Family History Family Medical History: Noncontributory - Tobacco Use Smoking Status *Q: Current Every Day Smoker Years of Tobacco use: 5 Packs/Tins Daily: 0.5 - Caffeine Use Caffeine Use: Reports: None - Recreational Drug Use Recreational Drug Use: No Drug Use in Last 12 Months: Yes Recreational Drug Type: Reports: Marijuana/Hashish - Living Situation & Occupation Living situation: Reports: Single, with Family Occupation: Employed ED ROS GENERAL - Review of Systems Review Of Systems: See Below Constitutional: Reports: No Symptoms HEENT: Reports: No Symptoms Respiratory: Reports: No Symptoms Cardiovascular: Reports: No Symptoms Endocrine: Reports: No Symptoms GI/Abdominal: Reports: Abdominal Pain, Other (see HPI) : Reports: Other (see HPI) 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: Reports: No Symptoms. Denies: Back Pain Neurological: Reports: No Symptoms ED EXAM, RENAL/ - Physical Exam Exam: See Below Exam Limited By: No Limitations General Appearance: Alert, WD/WN, No Apparent Distress Eye Exam: Bilateral Eye: EOMI, PERRL Ears: Hearing Grossly Normal Nose: Normal Inspection Throat/Mouth: Normal Inspection, Normal Lips, Normal Teeth Head: Atraumatic, Normocephalic Neck: Normal Inspection Respiratory/Chest: No Respiratory Distress, Lungs Clear, Normal Breath Sounds Cardiovascular: Regular Rate, Rhythm, No Murmur GI/Abdominal: Normal Bowel Sounds, Soft, Tender (tender to lower abdomen/ pelvis. When I press my stethescope into her abdomen she does not react; when I place my hand lightly on her lower abdomen she winces in pain). No: Guarding, Rigid, Rebound (Female) Exam: Normal External Exam, Normal Speculum Exam, Normal Bimanual Exam, Adnexal Tenderness (bilateral). No: Adnexal Mass, Cervical Discharge, Cervical Lesions, Cervix Motion Tenderness, Enlarged Uterus, Uterine Tenderness , Vaginal Bleeding, Vaginal Lesions Rectal (Female) Exam: Deferred Back Exam: Normal Inspection Extremities: Normal Inspection, No Pedal Edema Neurological: Alert, Oriented, Normal Cognition Psychiatric: Normal Affect, Normal Mood Skin Exam: Warm, Dry, Intact Course - Vital Signs Last Recorded V/S: Last Vital Signs Temp 36.4 C 07/14/17 19:24 Pulse 90 07/14/17 19:24 Resp 18 07/14/17 19:24 BP 129/92 H 07/14/17 19:24 Pulse Ox 100 07/14/17 19:24 - Orders/Labs/Meds Orders: Active Orders 24 hr Category Date Time Status Transvaginal Non OB [US] Stat Exams 07/14/17 20:42 Taken CULTURE URINE [] Routine Lab 07/14/17 20:25 Received Labs: Laboratory Tests 07/14/17 07/14/17 07/14/17 Range/Units 20:25 20:27 20:27 WBC 12.02 H (3.98-10.04) K/mm3 RBC 5.15 (3.98-5.22) M/mm3 Hgb 14.2 (11.2-15.7) gm/L Hct 43.8 (34.1-44.9) % MCV 85.0 (79.4-94.8) fl MCH 27.6 (25.6-32.2) pg MCHC 32.4 (32.2-35.5) g/dl RDW Std Deviation 43.4 (36.4-46.3) fL Plt Count 298 (182-369) K/mm3 MPV 10.0 (9.4-12.3) fl Neut % (Auto) 72.2 H (34.0-71.1) % Lymph % (Auto) 20.5 (19.3-51.7) % [place] % (Auto) 6.2 (4.7-12.5) % Eos % (Auto) 0.6 L (0.7-5.8) Baso % (Auto) 0.2 (0.1-1.2) % Neut # (Auto) 8.67 H (1.56-6.13) K/mm3 Lymph # (Auto) 2.47 (1.18-3.74) K/mm3 [place] # (Auto) 0.74 H (0.24-0.36) K/mm3 Eos # (Auto) 0.07 (0.04-0.36) K/mm3 Baso # (Auto) 0.03 (0.01-0.08) K/mm3 Sodium 140 (136-145) mEq/L Potassium 3.6 (3.5-5.1) mEq/L Chloride 102 (98-107) mEq/L Carbon Dioxide 26 (21-32) mEq/L Anion Gap 15.6 H (5-15) BUN 9 (7-18) mg/dL Creatinine 0.6 (0.55-1.02) mg/dL Est Cr Clr Drug Dosing 132.34 mL/min Estimated GFR (MDRD) > 60 (>60) mL/min BUN/Creatinine Ratio 15.0 (14-18) Glucose 83 (74-106) mg/dL Calcium 9.8 (8.5-10.1) mg/dL Total Bilirubin 0.3 (0.2-1.0) mg/dL AST 22 (15-37) U/L ALT 42 (14-59) U/L Alkaline Phosphatase 109 (46-116) U/L Total Protein 9.0 H (6.4-8.2) g/dl Albumin 4.1 (3.4-5.0) g/dl Globulin 4.9 gm/dL Albumin/Globulin Ratio 0.8 L (1-2) HCG, Qual (NEGATIVE) Urine Color Yellow (Yellow) Urine Appearance Clear (Clear) Urine pH 6.5 (5.0-8.0) Ur Specific [place] > or = 1.030 (1.005-1.030) Urine Protein Trace H (Negative) Urine Glucose (UA) Negative (Negative) Urine Ketones 1+ H (Negative) Urine Occult Blood Negative (Negative) Urine Nitrite Negative (Negative) Urine Bilirubin Negative (Negative) Urine Urobilinogen 0.2 (0.2-1.0) Ur Leukocyte Esterase Trace H (Negative) Urine RBC 5-10 H (0-5) /hpf Urine WBC 5-10 H (0-5) /hpf Ur Epithelial Cells 0-5 (0-5) /hpf Urine Bacteria Few (FEW) /hpf Urine Mucus Moderate H (FEW) /hpf C trachomatis DNA (PCR) N gonorrhoeae DNA (PCR) 07/14/17 07/14/17 Range/Units 20:27 20:40 WBC (3.98-10.04) K/mm3 RBC (3.98-5.22) M/mm3 Hgb (11.2-15.7) gm/L Hct (34.1-44.9) % MCV (79.4-94.8) fl MCH (25.6-32.2) pg MCHC (32.2-35.5) g/dl RDW Std Deviation (36.4-46.3) fL Plt Count (182-369) K/mm3 MPV (9.4-12.3) fl Neut % (Auto) (34.0-71.1) % Lymph % (Auto) (19.3-51.7) % [place] % (Auto) (4.7-12.5) % Eos % (Auto) (0.7-5.8) Baso % (Auto) (0.1-1.2) % Neut # (Auto) (1.56-6.13) K/mm3 Lymph # (Auto) (1.18-3.74) K/mm3 [place] # (Auto) (0.24-0.36) K/mm3 Eos # (Auto) (0.04-0.36) K/mm3 Baso # (Auto) (0.01-0.08) K/mm3 Sodium (136-145) mEq/L Potassium (3.5-5.1) mEq/L Chloride (98-107) mEq/L Carbon Dioxide (21-32) mEq/L Anion Gap (5-15) BUN (7-18) mg/dL Creatinine (0.55-1.02) mg/dL Est Cr Clr Drug Dosing mL/min Estimated GFR (MDRD) (>60) mL/min BUN/Creatinine Ratio (14-18) Glucose (74-106) mg/dL Calcium (8.5-10.1) mg/dL Total Bilirubin (0.2-1.0) mg/dL AST (15-37) U/L ALT (14-59) U/L Alkaline Phosphatase (46-116) U/L Total Protein (6.4-8.2) g/dl Albumin (3.4-5.0) g/dl Globulin gm/dL Albumin/Globulin Ratio (1-2) HCG, Qual Negative (NEGATIVE) Urine Color (Yellow) Urine Appearance (Clear) Urine pH (5.0-8.0) Ur Specific [place] (1.005-1.030) Urine Protein (Negative) Urine Glucose (UA) (Negative) Urine Ketones (Negative) Urine Occult Blood (Negative) Urine Nitrite (Negative) Urine Bilirubin (Negative) Urine Urobilinogen (0.2-1.0) Ur Leukocyte Esterase (Negative) Urine RBC (0-5) /hpf Urine WBC (0-5) /hpf Ur Epithelial Cells (0-5) /hpf Urine Bacteria (FEW) /hpf Urine Mucus (FEW) /hpf C trachomatis DNA (PCR) Detected H N gonorrhoeae DNA (PCR) Detected H Meds: Medications Discontinued Medications Generic Name Dose Route Start Last Admin Trade Name Freq PRN Reason Stop Dose Admin Ceftriaxone Sodium 0.25 gm 07/14/17 23:47 Rocephin IM 07/14/17 23:48 ONETIME ONE Sodium Chloride 1,000 mls @ 999 mls/hr 07/14/17 20:58 07/14/17 21:03 Normal Saline IV 07/14/17 21:58 999 mls/hr ONETIME ONE Administration Ketorolac Tromethamine 30 mg 07/14/17 20:03 07/14/17 20:25 Toradol IVPUSH 07/14/17 20:04 30 mg ONETIME ONE Administration Metronidazole 500 mg 07/14/17 23:47 Flagyl PO 07/14/17 23:48 ONETIME ONE Ondansetron HCl 4 mg 07/14/17 20:03 07/14/17 20:24 Zofran IVPUSH 07/14/17 20:04 4 mg ONETIME ONE Administration Tramadol HCl 50 mg 07/14/17 21:38 07/14/17 21:48 Ultram PO 07/14/17 21:39 50 mg ONETIME ONE Administration - Radiology Interpretation Free Text/Narrative:: reviewed TVUS images with Dr. Monaco; appearance of bilateral ovarian cysts with fluid in culdesac consistent with likely ruptured ovarian cyst. Awaiting Radiologist final interp. - Re-Assessments/Exams Free Text/Narrative Re-Assessment/Exam: 07/14/17 20:15 Labs ordered: CBC, CMP, UA and HCG. Free Text/Narrative Re-Assessment/Exam: 07/14/17 20:43 Pelvic exam completed with RN assistance; GC/chlamydia sample obtained from cervix. IUD strings visualized. Adnexal tenderness bilat but no masses or abnormalities on bimanual exam. Departure - Departure Time of Disposition: 22:02 Disposition: Home, Self-Care 01 Condition: Good Clinical Impression: Gonorrhea, Trichomonas vaginalis (TV) infection Ovarian cyst Qualifiers: Laterality: bilateral Qualified Code(s): N83.201 - Unspecified ovarian cyst, right side - Discharge Information Prescriptions: metroNIDAZOLE [Flagyl] 500 mg PO Q8H #21 tab Instructions: Abdominal Pain, Adult, [id number], Ovarian Cyst, [id number], Abdominal or Pelvic Ultrasound Referrals: PCP,None [Primary Care Provider] - Forms: ED Department Discharge Additional Instructions: Push fluids Small frequent meals Pain medication as needed; ibuprofen 600mg 3 times daily as needed and [place] from [facility] Follow up with PCP or TRAINING ENGINEER within one week for recheck, sooner if needed. Can return to ER if needed. <Shabbir Monaco - Last Filed: 07/14/17 23:54> Course - Re-Assessments/Exams Free Text/Narrative Re-Assessment/Exam: 07/14/17 23:09 Vrad --reports anteverted uterus measuring 6.2 x 3.2 x 5.0 cm with no focal myometrial masses . Nabothian cysts are appreciated on the cervix. The right ovary measures 2.9 x 1.8 x 1.8 with multiple follicles within it. There is a 2.4 cm slightly echogenic rounded focus adjacent to the right ovary with increased vascularity peripherally question of some increased vascularity centrally as well. Etiology unclear possibly an endometrioma. The left ovary measures 3.2 x 2.2 x 1.6 cm with multiple follicles present. Trace fluid in the cul-de-sac no evidence of torsion. Vaginal secretions tested positive for gonorrhea and Trichomonas infections. The patient has left the department but will be called back to receive a 250 mg IM injection of Rocephin for gonorrhea and will be started on Flagyl 500 mg orally 3 times a day for 7 days to clear up Trichomonas infection. First tablet was given in the ED. Patient states she's only been sexually active with one person in the last year and knows exactly who gave her this infection. She is already called him and advised him that he needs testing.
[2017-07-14] MEDS ORDERED: Sodium Chloride 0.9% 1,000 ML IV ONE (20:58)
[2017-07-14] MEDS ORDERED: traMADol 50 MG Tab PO ONE (21:38)
[2017-07-14 22:52] LABS: C. TRACHOMATIS BY PCR DETECTED; N. GONORRHOEAE BY PCR DETECTED
[2017-07-14] MEDS ORDERED: cefTRIAXone 1 GM Vial IM ONE (23:47)
[2017-07-14] MEDS ORDERED: metroNIDAZOLE 500 MG Tab PO ONE (23:47)
--- NOTE | 2017-07-15 10:06 | US ---
Pelvic ultrasound: Multiple real-time images were obtained transvaginally. Uterus is anteverted. Echogenic structure within the endometrial cavity is seen compatible with IUD. No myometrial abnormality is identified. Incidental nabothian cysts are present. Small amount of free fluid is seen within the cul-de-sac believed to be physiologic. Follicles are seen within both ovaries. There is an echogenic area within the right ovary along its periphery measuring about 2.4 cm containing a central hypoechoic area. Interesting to note that there is vascularity within this area. Measurements: Uterus: Length 6.2 cm, AP height is 3.3 cm, transverse width 5.0 cm Right ovary: 2.9 x 1.8 x 1.8 cm Left ovary: 3.2 x 2.2 x 1.6 cm Impression: 1. Small hyperechoic abnormality next to the right ovary showing blood flow. Given the patient's age this is likely incidental although follow-up study recommended in 3 months to confirm stability or disappearance. 2. Other incidental findings as noted above. Diagnostic code #3 Agree with preliminary report issued by [facility] ([facility] preliminary report dictated on 07/14/17, 11:40 PM Central Time)
== END 2017-07-15 00:18 | disposition home or self-care (01) ==
LOC: JD.ED 19:01
DX: A59.01 Trichomonal vulvovaginitis (principal); A54.02 Gonococcal vulvovaginitis, unspecified; N83.201 Unspecified ovarian cyst, right side; N83.202 Unspecified ovarian cyst, left side; F17.210 Nicotine dependence, cigarettes, uncomplicated
CPT/HCPCS: 36415; 76830; 80053; 81001; 84703; 85025; 87086; 87491; 87591; 96361; 96372; 96374; 96375; 99284; A9270; J0696; J1885; J2405; J7040; 87077

== ENCOUNTER 2018-02-05 14:20 | Emergency (ER) | payer MEDICAID ==
[2018-02-05 14:27] VITALS: BP 136/85
--- NOTE | 2018-02-05 15:25 | EDM.PDOC ---
ED HPI GENERAL MEDICAL PROBLEM - General Chief Complaint: Chest Pain Stated Complaint: CHEST PAIN Time Seen by Provider: 02/05/18 14:29 - History of Present Illness INITIAL COMMENTS - FREE TEXT/NARRATIVE: 22-year-old female presenting with chest pain and shortness of breath. Symptoms started this morning since awakening. Patient describes the pain as left-sided on the upper side of her chest in the front she can't provide any palliating or provoking factors. This is not associated with a cough fever chills or sweats. She does have some intermittent shortness of breath associated with it. Patient denies any recent immobilization or travel history of DVT or PE she is not on control either. She does however incidentally note large amount of personal stress she's been under lately with her father has had multiple MIs and been diagnosed with congestive heart failure. Father was 53 years old when he had his first heart attack. She has no first-degree relatives with history of sudden unexplained . Patient denies any drug use. She has had about a 10 pack years history of smoking. Patient denies any other known medical history such as hypertension hyperlipidemia or diabetes. Treatments MANAGER STRATEGIC DEVELOPMENT: Reports: Other (see below) Other Treatments MANAGER STRATEGIC DEVELOPMENT: none Left Chest Pain Score (Numeric/FACES): 8 - Related Data Allergies Allergy/AdvReac Type Severity Reaction Status Date / Time No Known Allergies Allergy Verified 07/14/17 19:24 Past Medical History - Past Health History Medical/Surgical History: Denies Medical/Surgical History HEENT History: Reports: None Cardiovascular History: Reports: None Respiratory History: Reports: None Gastrointestinal History: Reports: GERD Other Gastrointestinal History: epigastric pain Genitourinary History: Reports: None SPEED OPERATOR History: Reports: 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 History: Reports: None Neurological History: Reports: None Psychiatric History: Reports: None Endocrine/Metabolic History: Reports: None Hematologic History: Reports: None Immunologic History: Reports: None Oncologic (Cancer) History: Reports: None Other Dermatologic History: cyst removal from hand - Past Surgical History Head Surgeries/Procedures: Reports: None GI Surgical History: Reports: Cholecystectomy Female Surgical History: Reports: Tubal Ligation 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 Surgical History: Reports: Arthroscopic Knee, Other (See Below) Other 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 Surgeries/Procedures:: ganglian cyst removal of hand Social & Family History - Family History Family Medical History: Noncontributory - Tobacco Use Smoking Status *Q: Current Every Day Smoker Years of Tobacco use: 3 Packs/Tins Daily: 0.3 - Caffeine Use Caffeine Use: Reports: Energy Drinks - Recreational Drug Use Recreational Drug Use: No - Living Situation & Occupation Living situation: Reports: Single, with Family Occupation: Employed ED ROS GENERAL - Review of Systems Review Of Systems: See Below Constitutional: Reports: No Symptoms HEENT: Reports: No Symptoms Respiratory: Reports: Shortness of Breath. Denies: Cough Cardiovascular: Reports: Chest Pain, Lightheadedness GI/Abdominal: Reports: No Symptoms : Reports: No Symptoms 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: Reports: No Symptoms Skin: Reports: No Symptoms Neurological: Reports: No Symptoms Psychiatric: Reports: Anxiety ED EXAM, GENERAL - Physical Exam Exam: See Below Exam Limited By: No Limitations General Appearance: Alert, No Apparent Distress Head: Atraumatic, Normocephalic Neck: Normal Inspection Respiratory/Chest: No Respiratory Distress, Lungs Clear, Normal Breath Sounds Cardiovascular: Normal Peripheral Pulses, Regular Rate, Rhythm, No Edema, No JVD , No Murmur, Other (Mild left upper chest wall tenderness to palpation) GI/Abdominal: Soft, Non-Tender, No Distention Extremities: Normal Inspection Neurological: Alert, Oriented, CN II-XII Intact, Normal Cognition, No Motor/ Sensory Deficits Psychiatric: Normal Affect, Normal Mood Skin Exam: Warm, Dry, Intact EKG INTERPRETATION EKG Date: 02/05/18 Time: 14:36 Rhythm: NSR Rate (Beats/Min): 72 [place]: Normal P-Wave: Present QRS: Normal ST-T: Normal Comparison: NA - No Prior EKG Course - Vital Signs Last Recorded V/S: Last Vital Signs Temp 36.9 C 02/05/18 14:26 Pulse 75 02/05/18 14:26 Resp 20 02/05/18 14:26 BP 136/85 02/05/18 14:26 Pulse Ox 100 02/05/18 14:26 - Orders/Labs/Meds Orders: Active Orders 24 hr Category Date Time Status EKG Documentation Completion [RC] STAT Care 02/05/18 14:31 Active Chest 2V [CR] Stat Exams 02/05/18 14:32 Taken - Re-Assessments/Exams Free Text/Narrative Re-Assessment/Exam: 02/05/18 15:24 20-year-old female presenting with chest pain shortness of breath. On initial evaluation the patient had normal vital signs. Physical exam was notable only for tenderness to palpation of the left upper anterior chest wall. Otherwise lung sounds were clear and equal bilaterally auscultated no murmurs on my exam. EKG is normal shows no evidence of any ST segment, T-wave abnormalities or Q waves indicative of ischemia. Also no other signs of any arrhythmia such as prolonged QT or [id number] syndrome. X-ray by my interpretation shows no acute abnormalities. Long conversation with the patient about her chest pain. This time it is most likely related to anxiety or possibly has some musculoskeletal component. There is no indication for further testing today in the emergency department. She may be discharged safely home and follow up with her primary care provider. Patient stated understanding and was comfortable with the plan. She was given return precautions for any new or worsening chest pain, shortness of breath, lightheadedness dizziness or headache. Departure - Departure Time of Disposition: 15:25 Disposition: Home, Self-Care 01 Condition: Good Clinical Impression: Chest pain Qualifiers: Chest pain type: unspecified Qualified Code(s): R07.9 - Chest pain, unspecified Instructions: Nonspecific Chest Pain, [id number] Referrals: PCP,None [Primary Care Provider] - Forms: ED Department Discharge, ED Return to Work/School Form Additional Instructions: You were seen in the emergency department today for chest pain and shortness of breath. Your EKG and chest x-ray are normal. At this time there appears to be no serious emergent cause for your symptoms. You may follow-up with a primary care provider as an outpatient. If at anytime you have any new or worsening chest pain, shortness of breath, dizziness headache or any other symptoms that are concerning to you, please return to the emergency department for reevaluation. - My Orders Last 24 Hours: My Active Orders 02/05/18 14:31 EKG Documentation Completion [RC] STAT 02/05/18 14:32 Chest 2V [CR] Stat - Assessment/Plan Last 24 Hours: My Active Orders 02/05/18 14:31 EKG Documentation Completion [RC] STAT 02/05/18 14:32 Chest 2V [CR] Stat
--- NOTE | 2018-02-07 10:59 | CR ---
Chest: Two views of the chest were obtained. Comparison: No prior study. Heart size and mediastinum are normal. Lungs are clear. Bony structures are unremarkable. Impression: 1. Nothing acute is seen on two-view chest x-ray. Diagnostic code #1
== END 2018-02-05 15:36 | disposition home or self-care (01) ==
LOC: JD.ED 14:20
DX: R07.9 Chest pain, unspecified (principal); R06.02 Shortness of breath; F17.210 Nicotine dependence, cigarettes, uncomplicated
CPT/HCPCS: 71046; 71046-26; 93005; 93010; 99284-25; 99285-25

== ENCOUNTER 2018-07-06 11:35 | Emergency (ER) | payer MEDICAID ==
[2018-07-06 11:51] VITALS: BP 120/74
--- NOTE | 2018-07-06 12:00 | EDM.PDOC ---
ED HPI GENERAL MEDICAL PROBLEM - General Chief Complaint: Respiratory Problem Stated Complaint: RESPIRATORY POBLEMS Time Seen by Provider: 07/06/18 11:59 - History of Present Illness INITIAL COMMENTS - FREE TEXT/NARRATIVE: 23-year-old female presents emergency room with mild cough and some congestion. This started one or 2 days ago No associated fevers. Her 5-year-old was diagnosed with influenza and RSV started on albuterol nebulizer. Other than this is patient seems to be doing okay. She denies any fevers or chills no significant aches or pains no other symptoms. - Related Data Allergies Allergy/AdvReac Type Severity Reaction Status Date / Time progesterone Allergy Intermediate Hives Verified 07/06/18 11:49 Home Meds: Home Meds Escitalopram [Lexapro] 10 mg PO DAILY 05/19/18 [History] Albuterol [Ventolin HFA] 2 puff INH Q4H #1 puff 07/06/18 [Rx] Past Medical History - Past Health History Medical/Surgical History: Denies Medical/Surgical History HEENT History: Reports: Impaired Vision Other HEENT History: COUGH, SOB, BODY ACHES Cardiovascular History: Reports: None Respiratory History: Reports: None Gastrointestinal History: Reports: GERD Other Gastrointestinal History: epigastric pain Genitourinary History: Reports: None 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: , Other (See Below) Other GOLD LEAF ROLLER History: TUBES TIED 09/2017 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 History: Reports: None Neurological History: Reports: None Psychiatric History: Reports: Anxiety, Depression Endocrine/Metabolic History: Reports: None Hematologic History: Reports: None Immunologic History: Reports: None Oncologic (Cancer) History: Reports: None Dermatologic History: Reports: Other (See Below) Other Dermatologic History: cyst removal from hand - Past Surgical History Head Surgeries/Procedures: Reports: None GI Surgical History: Reports: Cholecystectomy Female Surgical History: Reports: Tubal Ligation 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 Surgical History: Reports: Arthroscopic Knee, Other (See Below) Other 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 Surgeries/Procedures:: ganglian cyst removal of hand Social & Family History - Family History Family Medical History: Noncontributory - Tobacco Use Smoking Status *Q: Current Every Day Smoker Years of Tobacco use: 10 Packs/Tins Daily: 0.5 - Caffeine Use Caffeine Use: Reports: Energy Drinks - Recreational Drug Use Recreational Drug Use: No - Living Situation & Occupation Living situation: Reports: Single, with Family Occupation: Employed ED ROS GENERAL - Review of Systems Review Of Systems: See Below Constitutional: Reports: No Symptoms. Denies: Fever, Chills Respiratory: Reports: Cough. Denies: Shortness of Breath, Wheezing, Pleuritic Chest Pain, Sputum Cardiovascular: Reports: No Symptoms GI/Abdominal: Reports: No Symptoms : Reports: No Symptoms ED EXAM, GENERAL - Physical Exam Exam: See Below Exam Limited By: No Limitations General Appearance: Alert, No Apparent Distress Eye Exam: Right Eye: Nystagmus, Bilateral Eye: Normal Inspection Ears: Normal External Exam, Normal Canal, Hearing Grossly Normal, Normal TMs Nose: Normal Inspection, Normal Mucosa, No Blood Throat/Mouth: Normal Inspection, Normal Lips, Normal Teeth, Normal Gums, Normal Oropharynx, Normal Voice, No Airway Compromise Head: Atraumatic, Normocephalic Neck: Normal Inspection, Supple, Non-Tender, Full Range of Motion. No: Lymphadenopathy (L), Lymphadenopathy (R) Respiratory/Chest: No Respiratory Distress, Lungs Clear, Normal Breath Sounds, No Accessory Muscle Use Cardiovascular: Normal Peripheral Pulses, Regular Rate, Rhythm, No Edema Course - Vital Signs Last Recorded V/S: Last Vital Signs Temp 36.6 C 07/06/18 11:50 Pulse 78 07/06/18 11:50 Resp 16 07/06/18 11:50 BP 120/74 07/06/18 11:50 Pulse Ox 97 07/06/18 11:50 - Re-Assessments/Exams Free Text/Narrative Re-Assessment/Exam: 07/06/18 12:22 Normal exam and optic a chest x-ray would be beneficial at this point discussed influenza testing but the patient would not elect to be treated so be pointless to get the test. She does understand that a small percentage of people in her situation have worsening of symptoms as time goes and she agrees to return to the emergency room when the clinic if needed. We'll start her on an albuterol MDI for a suspected early bronchitis. Departure - Departure Time of Disposition: 12:23 Disposition: Home, Self-Care 01 Clinical Impression: Acute bronchiolitis Qualifiers: Bronchiolitis organism: unspecified organism Qualified Code(s): J21.9 - Acute bronchiolitis, unspecified - Discharge Information Prescriptions: Albuterol [Ventolin HFA] 2 puff INH Q4H #1 puff Referrals: Yasmine Roldan MD [Primary Care Provider] - Forms: ED Department Discharge Additional Instructions: Return to the emergency room with any questions problems worsening symptoms. Use the albuterol inhaler 2 puffs every 4 hours while awake until better and then used 3 times a day for 1 week then stop. Tylenol and Motrin as needed. Push lots of fluids
== END 2018-07-06 12:40 | disposition home or self-care (01) ==
LOC: JD.ED 11:35
DX: J21.9 Acute bronchiolitis, unspecified (principal); F17.210 Nicotine dependence, cigarettes, uncomplicated
CPT/HCPCS: 99283

== ENCOUNTER 2019-06-21 16:01 | Emergency (ER) | payer MEDICAID ==
[2019-06-21 16:13] VITALS: BP 143/85; PULSE 100
--- NOTE | 2019-06-21 16:50 | EDM.PDOC ---
ED HPI GENERAL MEDICAL PROBLEM - General Chief Complaint: Skin Complaint Stated Complaint: SKIN COMPLAINT Time Seen by Provider: 06/21/19 16:10 Source of Information: Reports: Patient, RN Notes Reviewed - History of Present Illness INITIAL COMMENTS - FREE TEXT/NARRATIVE: 24 year old female comes in with rash bilat lower extrem that started 2 or 3 days ago. No rash to head, neck, chest, abd or back or Upper extrem. She also states that she has numbness and tingling of her feet, distal legs and numbness and tingling of her hands and arms that will occasionally come for about 5 to 10 minutes. No fever or chills. No change in detergent or any thing like that. Ambulatory without difficulty. No Mike, nausea, vomiting or visual problems. Has not had any thing like this before in terms of the rash and in terms of the numbness and tingling. Bilateral Leg Pain Score (Numeric/FACES): 5 - Related Data Allergies Allergy/AdvReac Type Severity Reaction Status Date / Time progesterone Allergy Intermediate Hives Verified 06/21/19 16:12 Home Meds: Home Meds Doxycycline [Vibramycin] 100 mg PO BID #20 tab 06/21/19 [Rx] Past Medical History - Past Health History Medical/Surgical History: Denies Medical/Surgical History HEENT History: Reports: Impaired Vision Other HEENT History: COUGH, SOB, BODY ACHES Cardiovascular History: Reports: None Respiratory History: Reports: None Gastrointestinal History: Reports: GERD Other Gastrointestinal History: epigastric pain Genitourinary History: Reports: None 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: Reports: , Other (See Below) Other DISH MAKER History: TUBES TIED 09/2017 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 History: Reports: None Neurological History: Reports: None Psychiatric History: Reports: Anxiety, Depression Endocrine/Metabolic History: Reports: None Hematologic History: Reports: None Immunologic History: Reports: None Oncologic (Cancer) History: Reports: None Dermatologic History: Reports: Other (See Below) Other Dermatologic History: cyst removal from hand - Past Surgical History Head Surgeries/Procedures: Reports: None GI Surgical History: Reports: Cholecystectomy Female Surgical History: Reports: Tubal Ligation 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 Surgical History: Reports: Arthroscopic Knee, Other (See Below) Other 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 Surgeries/Procedures:: ganglian cyst removal of hand Social & Family History - Family History Family Medical History: Noncontributory - Tobacco Use Smoking Status *Q: Never Smoker - Caffeine Use Caffeine Use: Reports: Coffee, Energy Drinks, Soda - Living Situation & Occupation Living situation: Reports: Single, with Family Occupation: Employed ED ROS GENERAL - Review of Systems Review Of Systems: See Below Constitutional: Denies: Fever, Chills HEENT: Denies: Throat Pain Respiratory: Denies: Shortness of Breath Cardiovascular: Denies: Chest Pain GI/Abdominal: Denies: Abdominal Pain, Nausea, Vomiting : Reports: No Symptoms 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: Denies: Leg Pain Skin: Reports: Erythema (bilat medial thighs about half way down to her knees) Neurological: Reports: Numbness, Tingling. Denies: Trouble Speaking ED EXAM, SKIN/RASH Exam: See Below Exam Limited By: No Limitations General Appearance: Alert, No Apparent Distress Eye Exam: Bilateral Eye: PERRL Throat/Mouth: Normal Inspection, Normal Oropharynx, Other (oral mucosa moist) Head: Atraumatic. No: Facial Swelling Neck: Supple, Full Range of Motion Respiratory/Chest: No Respiratory Distress, Lungs Clear, Normal Breath Sounds Cardiovascular: Regular Rate, Rhythm GI/Abdominal: Non-Tender Back Exam: No: CVA Tenderness (L), CVA Tenderness (R) Extremities: Normal Inspection Neurological: Alert, Oriented, Other (no motor deficit, decreased sensation to touch bilat feet, sensation upper extrem nl) Skin: Erythema (bilat proximal medial thighs, skin otherwise totally clear), Increased Warmth (inner aspect of medial thighs mildly warm) Course - Vital Signs Last Recorded V/S: Last Vital Signs Temp 98.8 F 06/21/19 16:10 Pulse 100 06/21/19 16:10 Resp 20 06/21/19 16:10 BP 143/85 H 06/21/19 16:10 Pulse Ox 99 06/21/19 16:10 - Orders/Labs/Meds Labs: Laboratory Tests 06/21/19 06/21/19 06/21/19 Range/Units 17:07 17:07 17:07 WBC 8.86 (3.98-10.04) K/mm3 RBC 4.98 (3.98-5.22) M/mm3 Hgb 13.8 D (11.2-15.7) gm/dl Hct 43.2 (34.1-44.9) % MCV 86.7 (79.4-94.8) fl MCH 27.7 (25.6-32.2) pg MCHC 31.9 L (32.2-35.5) g/dl RDW Std Deviation 41.9 (36.4-46.3) fL Plt Count 324 D (182-369) K/mm3 MPV 9.3 L (9.4-12.3) fl Neut % (Auto) 61.4 (34.0-71.1) % Lymph % (Auto) 27.1 (19.3-51.7) % [place] % (Auto) 8.7 (4.7-12.5) % Eos % (Auto) 2.0 (0.7-5.8) Baso % (Auto) 0.3 (0.1-1.2) % Neut # (Auto) 5.44 (1.56-6.13) K/mm3 Lymph # (Auto) 2.40 (1.18-3.74) K/mm3 [place] # (Auto) 0.77 H (0.24-0.36) K/mm3 Eos # (Auto) 0.18 (0.04-0.36) K/mm3 Baso # (Auto) 0.03 (0.01-0.08) K/mm3 Sodium 142 (136-145) mEq/L Potassium 3.8 (3.5-5.1) mEq/L Chloride 107 (98-107) mEq/L Carbon Dioxide 26 (21-32) mEq/L Anion Gap 12.8 (5-15) BUN 12 (7-18) mg/dL Creatinine 0.6 (0.55-1.02) mg/dL Est Cr Clr Drug Dosing 5.50 mL/min Estimated GFR (MDRD) > 60 (>60) mL/min BUN/Creatinine Ratio 20.0 H (14-18) Glucose 91 (74-106) mg/dL Calcium 9.1 (8.5-10.1) mg/dL Total Bilirubin 0.3 (0.2-1.0) mg/dL AST 17 (15-37) U/L ALT 40 (14-59) U/L Alkaline Phosphatase 90 (46-116) U/L C-Reactive Protein 0.7 (<1.0) mg/dL Total Protein 8.0 (6.4-8.2) g/dl Albumin 3.8 (3.4-5.0) g/dl Globulin 4.2 gm/dL Albumin/Globulin Ratio 0.9 L (1-2) Meds: Medications Discontinued Medications Generic Name Dose Route Start Last Admin Trade Name Wesley PRN Reason Stop Dose Admin Doxycycline Hyclate 100 mg 06/21/19 18:18 06/21/19 18:35 Vibramycin PO 06/21/19 18:19 100 mg ONETIME ONE Administration - Re-Assessments/Exams Free Text/Narrative Re-Assessment/Exam: 06/21/19 19:45 White blood count normal, C-reactive protein normal. Chemistries normal. The erythema of bilateral lower extremities appears to be more of a contact dermatitis inflammatory process but there is no history to support that. I am going to start her on doxycycline to cover for possible cellulitis but to have cellulitis of both extremities symmetrically at the same time seems quite unlikely. I do not have a good explanation for the paresthesias of her feet, distal legs. At time of initial exam her feet were extremely cold but good pulses and cap refill. I did have her get up and walk prior to discharge and she did fine with that although her gait was slow and deliberate. Did do okay with heel to toe walking and was able to get up on her toes, balls of her feet bilateral exhibiting no focal weakness. However with her symptoms of quite severe bilateral stocking glove type paresthesias I have ordered MRI of her brain. Radiology will call her in the morning to give her a time for that. Discharge instructions as documented Departure - Departure Time of Disposition: 18:19 Disposition: Home, Self-Care 01 Condition: Fair Clinical Impression: Skin rash, Paresthesias/numbness - Discharge Information Prescriptions: Doxycycline [Vibramycin] 100 mg PO BID #20 tab Instructions: Rash, [id number] Referrals: Yasmine Roldan MD [Primary Care Provider] - Forms: ED Department Discharge, ED Return to Work/School Form Additional Instructions: Doxycycline 100 mg twice daily for 10 days or until gone. An order for MRI of brain has been submitted to radiology. They should be contacting you first thing tomorrow morning to set up a time for you to get that done. See Dr. Roldan about one day after the MRI for follow-up and for results. Avoid cold exposure to feet and legs. Rest and elevate feet and legs as much as possible. Return to ED as needed if symptoms worsening in any way. Sepsis Event Note - Evaluation Sepsis Screening Result: No Definite Risk - Focused Exam Vital Signs: Vital Signs Temp Pulse Resp BP Pulse Ox 06/21/19 16:10 98.8 F 100 20 143/85 H 99 Date Exam was Performed: 06/21/19 Time Exam was Performed: 19:43
[2019-06-21] MEDS ORDERED: Doxycycline 100 MG Cap PO ONE (18:18)
== END 2019-06-21 18:39 | disposition home or self-care (01) ==
LOC: JD.ED 16:01
DX: R21 Rash and other nonspecific skin eruption (principal); R20.2 Paresthesia of skin; R20.0 Anesthesia of skin; Z88.8 Allergy status to other drugs, medicaments and biological substances
CPT/HCPCS: 36415; 80053; 85025; 86140; 99284; A9270; 99283

== ENCOUNTER 2019-06-29 17:34 | Emergency (ER) | payer MEDICAID ==
[2019-06-29 17:45] VITALS: BP 131/82; PULSE 104
--- NOTE | 2019-06-29 18:29 | EDM.PDOC ---
ED HPI GENERAL MEDICAL PROBLEM - General Chief Complaint: Lower Extremity Injury/Pain Stated Complaint: LT LEG SWOLLEN AND PURPLE COLOR Time Seen by Provider: 06/29/19 17:55 Source of Information: Reports: Patient, RN Notes Reviewed History Limitations: Reports: No Limitations - History of Present Illness INITIAL COMMENTS - FREE TEXT/NARRATIVE: Patient is a 24-year-old female who presents to the ED for the evaluation of a left leg complaint. Patient states that she was evaluated this ER around 1 week ago, and was thought to have some sort of cellulitis, she was also having some leg numbness, and Dr. shea had ordered an outpatient MRI of her brain for further evaluation of the stocking glove paresthesia to her lower extremities. Patient did have the brain MRI done, this demonstrates no lesions. Patient notes that the numbness has improved a little bit, still more of a tingling that a complete numbness. Patient does appreciate some discoloration of both legs, these appear to be mottled in nature, and she states that her boyfriend appreciated a very purple color last night. Patient does not complain much of pain, but she does state that her left leg is little bit more swollen than her right leg as well. Patient is not complaining of any low back pain or hip pain with this. Patient states that the numbness/tingling started at her toes and moved upwards into her leg. She denies any recent viral illnesses that she may have had that preceded the numbness and tingling get her legs. Left Leg Pain Score (Numeric/FACES): 6 - Related Data Allergies Allergy/AdvReac Type Severity Reaction Status Date / Time progesterone Allergy Intermediate Hives Verified 06/29/19 17:45 Home Meds: Home Meds Doxycycline [Vibramycin] 100 mg PO BID #20 tab 06/21/19 [Rx] predniSONE 20 mg PO ASDIRECTED #15 tab 06/29/19 [Rx] Past Medical History HEENT History: Reports: Impaired Vision Other HEENT History: COUGH, SOB, BODY ACHES Gastrointestinal History: Reports: GERD Other Gastrointestinal History: epigastric pain STATE DIRECTOR History: Reports: , Other (See Below) Other STATE DIRECTOR History: TUBES TIED 09/2017 Psychiatric History: Reports: Anxiety, Depression Dermatologic History: Reports: Other (See Below) Other Dermatologic History: cyst removal from hand - Past Surgical History GI Surgical History: Reports: Cholecystectomy Female Surgical History: Reports: Tubal Ligation 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 Surgical History: Reports: Arthroscopic Knee, Other (See Below) Other 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 Surgeries/Procedures:: ganglian cyst removal of hand Social & Family History - Family History Family Medical History: Noncontributory - Tobacco Use Smoking Status *Q: Current Every Day Smoker Years of Tobacco use: 10 Packs/Tins Daily: 0.5 - Caffeine Use Caffeine Use: Reports: None - Recreational Drug Use Recreational Drug Use: No - Living Situation & Occupation Living situation: Reports: Single, with Family Occupation: Employed Review of Systems - Review of Systems Review Of Systems: See Below Constitutional: Denies: Chills, Fever Eyes: Denies: Blurred Vision Respiratory: Denies: Shortness of Breath Cardiovascular: Denies: Chest Pain GI/Abdominal: Denies: Abdominal Pain, Diarrhea, Nausea, Vomiting Genitourinary: Denies: Dysuria 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: Denies: Leg Pain Skin: Reports: Mottled (bilateral lower extremities) Neurological: Reports: Numbness (L foot), Tingling (L foot). Denies: Difficulty Walking, Weakness ED EXAM, GENERAL - Physical Exam Exam: See Below Exam Limited By: No Limitations General Appearance: Alert, WD/WN, No Apparent Distress Eye Exam: Bilateral Eye: EOMI, Nystagmus, PERRL Ears: Normal External Exam Nose: Normal Inspection Throat/Mouth: Normal Inspection, Normal Lips, Normal Teeth, Normal Gums, Normal Oropharynx, Normal Voice, No Airway Compromise Head: Atraumatic, Normocephalic Neck: Normal Inspection Respiratory/Chest: No Respiratory Distress, Lungs Clear, Normal Breath Sounds, No Accessory Muscle Use, Chest Non-Tender Cardiovascular: Normal Peripheral Pulses, Regular Rate, Rhythm, No Murmur Peripheral Pulses: 3+: Radial (L), Radial (R), Dorsalis Pedis (L), Dorsalis Pedis (R) GI/Abdominal: Normal Bowel Sounds, Soft, Non-Tender, No Distention, No Mass Extremities: Normal Range of Motion, Normal Capillary Refill, Mottled ( bilateral lower extremities, normal warmth.) Neurological: Alert, Oriented, Normal Cognition, No Motor/Sensory Deficits Psychiatric: Normal Affect, Normal Mood Skin Exam: Warm, Dry, Intact, No Rash, Mottled (bialteral lower extremities, normal warmth). No: Ecchymosis, Erythema, Increased Warmth, Pallor, Wound/ Incision Course - Vital Signs Last Recorded V/S: Last Vital Signs Temp 97.6 F 06/29/19 17:42 Pulse 104 H 06/29/19 17:42 Resp 16 06/29/19 17:42 BP 131/82 06/29/19 17:42 Pulse Ox 97 06/29/19 17:42 - Re-Assessments/Exams Free Text/Narrative Re-Assessment/Exam: 06/29/19 18:37 Patient presents to the ED for the evaluation of bilateral lower leg bottling, with left foot tingling and left leg swelling. Patient's MRI shows no lesions to the brain, I did make her aware of this, the patient states that she was worried that she might have a blood clot in her leg as well, and states that an ultrasound was not done at the last visit, and was wanting evaluation for blood clot. At this time I believe this is very low likelihood however I will order an ultrasound for further evaluation. 06/29/19 20:39 Ultrasound is done, demonstrates no sign of any sort of DVT in the left leg, patient does have a small 6 mm hypoechoic area which shows central fluid within the lateral heel in the area described as discomfort findings raise the possibility of a small hematoma if the patient has no symptoms of infection. I will reassess his areas the patient was not complaining of any pain or redness in this area. As for the patient's numbness and tingling I am still quite unsure as to what the cause of this could be. Departure - Departure Time of Disposition: 20:45 Disposition: Home, Self-Care 01 Condition: Fair Clinical Impression: Numbness and tingling of left leg, Hematoma - Discharge Information *PRESCRIPTION DRUG MONITORING PROGRAM REVIEWED*: No *COPY OF PRESCRIPTION DRUG MONITORING REPORT IN PATIENT REGIS: No Prescriptions: predniSONE 20 mg PO ASDIRECTED #15 tab Instructions: Paresthesia, [id number] Referrals: Yasmine Roldan MD [Primary Care Provider] - Forms: ED Department Discharge Additional Instructions: You were evaluated at the ER today regarding your left leg discoloration, numbness and tingling. An ultrasound was done at today's visit, this demonstrated no sign of a DVT within the left leg, it did however show a small area that appears to be a hematoma which is a bruise within your left lateral heel. As for the numbness/tingling in your legs, etiology of this is still pretty unclear, however you will be started on a course of steroids to see if this does not help some of your symptoms, hopefully you should notice benefit in a few days, and I would like to have you follow-up with your regular care provider for further management and evaluation. Try to elevate the legs as much as possible to help relieve some of the swelling that you are having as well. Please return to the ER at any time if your symptoms change or worsen. Sepsis Event Note - Evaluation Sepsis Screening Result: No Definite Risk - Focused Exam Vital Signs: Vital Signs Temp Pulse Resp BP Pulse Ox 06/29/19 17:42 97.6 F 104 H 16 131/82 97 Date Exam was Performed: 06/29/19 Time Exam was Performed: 20:45
--- NOTE | 2019-06-29 19:55 | US ---
Left lower extremity deep venous ultrasound: Duplex and color Doppler evaluation was obtained of the left common femoral, proximal greater saphenous, superficial femoral, popliteal, posterior tibial and peroneal veins. Right common femoral vein was also evaluated. Findings: Normal phasic flow, augmentation and compression is seen. Small 6 mm hypoechoic area which appears to contain fluid is seen within the left lateral heel area described as area of discomfort. Impression: 1. Small 6 mm hypoechoic area which shows central fluid within the lateral heel in area described as discomfort. Findings raise the possibility of small hematoma if patient has no symptoms of infection. 2. No evidence of deep venous thrombosis within left lower extremity or within the right common femoral vein. Diagnostic code #3 Study was dictated in [place] Standard Time
== END 2019-06-29 20:55 | disposition home or self-care (01) ==
LOC: JD.ED 17:34
DX: R20.0 Anesthesia of skin (principal); R20.2 Paresthesia of skin; S80.12XA Contusion of left lower leg, initial encounter; F17.210 Nicotine dependence, cigarettes, uncomplicated; Z88.8 Allergy status to other drugs, medicaments and biological substances; X58.XXXA Exposure to other specified factors, initial encounter
CPT/HCPCS: 93971-26-LT; 93971-LT; 99283; 99284-25

== ENCOUNTER 2020-06-26 12:40 | Emergency (ER) | payer MEDICAID ==
[2020-06-26 13:06] VITALS: BP 113/59; PULSE 83
[2020-06-26] MEDS ORDERED: Ketorolac 60 MG/2 ML SDV IM ONE (13:19)
--- NOTE | 2020-06-26 14:08 | EDM.PDOC ---
ED HPI GENERAL MEDICAL PROBLEM - General Chief Complaint: Lower Extremity Injury/Pain Stated Complaint: RT LEG AND KNEE PAIN Time Seen by Provider: 06/26/20 12:49 Source of Information: Reports: Patient, RN Notes Reviewed History Limitations: Reports: No Limitations - History of Present Illness INITIAL COMMENTS - FREE TEXT/NARRATIVE: Patient is a 25-year-old female presenting to the emergency department with complaints of right knee pain as well as some numbness in her right foot. She states that she tripped on a cord and her right knee hyperextended laterally. She is complaining of pain to her posterior and medial knee. She states that initially her foot felt like a "cinderblock ". Denies any pain to the foot or ankle. Denies any previous injury to this extremity. She took a Tylenol prior to coming to the ER. 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, Cold Therapy Right Posterior Feet Pain Score (Numeric/FACES): 3 Right Posterior Knee Pain Score (Numeric/FACES): 8 - Related Data Allergies Allergy/AdvReac Type Severity Reaction Status Date / Time progesterone Allergy Intermediate Hives Verified 06/26/20 13:06 Home Meds: Home Meds Naproxen [Naprosyn] 500 mg PO Q12HR 5 Days #10 tab 06/26/20 [Rx] Venlafaxine HCl [Venlafaxine ER] 37.5 mg PO DAILY 06/26/20 [History] hydrOXYzine HCL [hydrOXYzine] 25 mg PO TID PRN 06/26/20 [History] Past Medical History - Past Health History Medical/Surgical History: Denies Medical/Surgical History HEENT History: Reports: Impaired Vision Other HEENT History: COUGH, SOB, BODY ACHES Cardiovascular History: Reports: None Respiratory History: Reports: None Gastrointestinal History: Reports: GERD Other Gastrointestinal History: epigastric pain Genitourinary History: Reports: None 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 TRIMMER History: Reports: , Other (See Below) Other COUNTER POCKET TRIMMER History: TUBES TIED 09/2017 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 History: Reports: None Neurological History: Reports: None Psychiatric History: Reports: Anxiety, Depression Endocrine/Metabolic History: Reports: None Hematologic History: Reports: None Immunologic History: Reports: None Oncologic (Cancer) History: Reports: None Dermatologic History: Reports: Other (See Below) Other Dermatologic History: cyst removal from hand - Past Surgical History Head Surgeries/Procedures: Reports: None GI Surgical History: Reports: Cholecystectomy Female Surgical History: Reports: Tubal Ligation 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 Surgical History: Reports: Arthroscopic Knee, Other (See Below) Other 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 Surgeries/Procedures:: ganglian cyst removal of hand Social & Family History - Family History Family Medical History: No Pertinent Family History - Tobacco Use Tobacco Use Status *Q: Former Tobacco User Years of Tobacco use: 10 Packs/Tins Daily: 0.5 Used Tobacco, but Quit: Yes Month/Year Tobacco Last Used: 06/18/2020 Second Hand Smoke Exposure: No - Caffeine Use Caffeine Use: Reports: Coffee - Recreational Drug Use Recreational Drug Use: No - Living Situation & Occupation Living situation: Reports: Single, with Family Occupation: Employed Review of Systems - Review of Systems Review Of Systems: Comprehensive ROS is negative, except as noted in HPI. ED EXAM, GENERAL - Physical Exam Exam: See Below General Appearance: Alert, WD/WN, No Apparent Distress Respiratory/Chest: No Respiratory Distress, Lungs Clear, Normal Breath Sounds, No Accessory Muscle Use, Chest Non-Tender Cardiovascular: Normal Peripheral Pulses, Regular Rate, Rhythm, No Edema, No Gallop, No JVD, No Murmur, No Rub Extremities: Other (Pain to right popliteal and medial aspect of the knee. Mild edema present. Decreased pinprick sensation immediately proximal to the right toes. Full sensation to the remainder of the foot. Circulation and motor function are intact.) Neurological: Alert, Oriented, CN II-XII Intact, Normal Cognition, Normal Gait, Normal Reflexes, No Motor/Sensory Deficits Psychiatric: Normal Affect, Normal Mood Skin Exam: Warm, Dry, Intact, Normal Color, No Rash Course - Vital Signs Last Recorded V/S: Last Vital Signs Temp 98.3 F 06/26/20 12:56 Pulse 83 06/26/20 12:56 Resp 18 06/26/20 12:56 BP 113/59 L 06/26/20 12:56 Pulse Ox 97 06/26/20 12:56 - Orders/Labs/Meds Meds: Medications Discontinued Medications Generic Name Dose Route Start Last Admin Trade Name Freq PRN Reason Stop Dose Admin Ketorolac Tromethamine 60 mg 06/26/20 13:19 06/26/20 13:33 Toradol IM 06/26/20 13:20 60 mg ONETIME ONE Administration - Re-Assessments/Exams Free Text/Narrative Re-Assessment/Exam: Patient is a 25-year-old female presenting to the emergency department with complaints of right knee pain as well as numbness in her right foot after falling over a cord. She states initially her foot felt like a "cinderblock" on exam, she does have pinprick sensation throughout the foot, however it is somewhat decreased immediately proximal to the toes on the dorsal aspect of the foot. Circulation and motor function are intact. There is mild edema to the medial aspect of the knee but no obvious deformities. I have ordered 3 view x- ray of the right knee as well as Toradol 60 mg IM. 06/26/20 14:06 X-ray reviewed by myself and Dr. Schmidt and no acute abnormalities were visualized. Official radiology read is pending. Discussed with patient that injury of the medial ligaments is a definite possibility. We will place her in a knee immobilizer and provide crutches. Recommend follow-up with Dr. Bob this week. I will send a prescription for Naprosyn for pain. Discharge instructions as documented. Departure - Departure Time of Disposition: 14:11 Disposition: Home, Self-Care 01 Condition: Good Clinical Impression: Sprain of knee - Discharge Information *PRESCRIPTION DRUG MONITORING PROGRAM REVIEWED*: No *COPY OF PRESCRIPTION DRUG MONITORING REPORT IN PATIENT REGIS: No Prescriptions: Naproxen [Naprosyn] 500 mg PO Q12HR 5 Days #10 tab Instructions: Knee Sprain, Adult, [id number] Referrals: Jeanne Romero NP [Primary Care Provider] - Jos Bob MD [Physician] - Forms: ED Department Discharge, ED Return to Work/School Form Additional Instructions: You were seen in the emergency department today for pain to your right knee after falling at home. X-rays were completed and found to be normal. As we discussed, the majority of the injuries are injuries of the ligaments and these are not visible on x-ray. You been placed in a knee immobilizer and provided crutches. A referral has been sent to orthopedist, Dr. Bob. Call his office on Saturday to set up an appointment. Ice and elevate the extremity intermittently for the next few days. [facility] Uses medication as prescribed, however do not take your first dose until after 7 PM this evening due to the medication you received in the ER. A note has been provided off from work for you through next . Return to ER as needed. Sepsis Event Note (ED) - Evaluation Sepsis Screening Result: No Definite Risk - Focused Exam Vital Signs: Vital Signs Temp Pulse Resp BP Pulse Ox 06/26/20 12:56 98.3 F 83 18 113/59 L 97
--- NOTE | 2020-06-26 14:11 | CR ---
Right knee: AP, lateral and sunrise patellar views of the right knee were obtained. Comparison: Prior right knee study of 11/02/16. Medial and lateral joint spaces are maintained in height. Patellofemoral joint is normal. No joint effusion is appreciated. No acute fracture, dislocation or other bony abnormality is appreciated. Impression: 1. Nothing acute is seen on 3 view right knee exam. Diagnostic code #1
== END 2020-06-26 14:45 | disposition home or self-care (01) ==
LOC: JD.ED 12:40
DX: S83.91XA Sprain of unspecified site of right knee, initial encounter (principal); Z87.891 Personal history of nicotine dependence; Z88.8 Allergy status to other drugs, medicaments and biological substances; W01.0XXA Fall on same level from slipping, tripping and stumbling without subsequent striking against object, initial encounter
CPT/HCPCS: 73562; 96372; 99284; J1885; 99283

== ENCOUNTER 2020-07-31 10:57 | Emergency (ER) | payer MEDICAID ==
[2020-07-31 11:07] VITALS: BP 130/88; PULSE 90
--- NOTE | 2020-07-31 11:34 | EDM.PDOC ---
ED HPI GENERAL MEDICAL PROBLEM - General Chief Complaint: Upper Extremity Injury/Pain Stated Complaint: L HAND MIDDLE FINGER INJURY Time Seen by Provider: 07/31/20 11:07 Source of Information: Reports: Patient History Limitations: Reports: No Limitations - History of Present Illness INITIAL COMMENTS - FREE TEXT/NARRATIVE: 25-year-old female presents to the emergency department with complaints of left middle finger injury that occurred on Saturday, 2 days ago. Patient states she was helping her dad move a chest size tool box and states she dropped it on her finger. Patient states she did attempt to ice it and take Tylenol and ibuprofen, however it has become more painful and swollen and numb. Patient states it feels like there is a lump on the dorsal aspect of the mid finger. Patient states numbness radiates to the middle of the hand on the dorsal side. 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 Onset: Sudden Onset Date: 07/22/20 Left Finger-Middle Pain Score (Numeric/FACES): 7 - Related Data Allergies Allergy/AdvReac Type Severity Reaction Status Date / Time progesterone Allergy Intermediate Hives Verified 07/31/20 11:07 Home Meds: Home Meds Venlafaxine HCl [Venlafaxine ER] 37.5 mg PO DAILY 06/26/20 [History] hydrOXYzine HCL [hydrOXYzine] 25 mg PO TID PRN 06/26/20 [History] Past Medical History - Past Health History Medical/Surgical History: Denies Medical/Surgical History HEENT History: Reports: Impaired Vision Other HEENT History: COUGH, SOB, BODY ACHES Cardiovascular History: Reports: None Respiratory History: Reports: None Gastrointestinal History: Reports: GERD Other Gastrointestinal History: epigastric pain Genitourinary History: Reports: None 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: , Other (See Below) Other CONVERSION DEVELOPER History: TUBES TIED 09/2017 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 History: Reports: None Neurological History: Reports: None Psychiatric History: Reports: Anxiety, Depression, PTSD Endocrine/Metabolic History: Reports: None Hematologic History: Reports: None Immunologic History: Reports: None Oncologic (Cancer) History: Reports: None Dermatologic History: Reports: Other (See Below) Other Dermatologic History: cyst removal from hand - Infectious Disease History Infectious Disease History: Reports: None - Past Surgical History Head Surgeries/Procedures: Reports: None GI Surgical History: Reports: Cholecystectomy Female Surgical History: Reports: Tubal Ligation 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 Surgical History: Reports: Arthroscopic Knee, Other (See Below) Other 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 Surgeries/Procedures:: ganglian cyst removal of hand Social & Family History - Family History Family Medical History: No Pertinent Family History - Tobacco Use Tobacco Use Status *Q: Current Every Day Tobacco User Years of Tobacco use: 10 Packs/Tins Daily: 0.3 - Caffeine Use Caffeine Use: Reports: None - Recreational Drug Use Recreational Drug Use: No - Living Situation & Occupation Living situation: Reports: Single, with Family Occupation: Employed Review of Systems - Review of Systems Review Of Systems: Comprehensive ROS is negative, except as noted in HPI. ED EXAM, GENERAL - Physical Exam Exam: See Below Exam Limited By: No Limitations General Appearance: Alert, WD/WN, No Apparent Distress Ears: Hearing Grossly Normal Nose: Normal Inspection Throat/Mouth: Normal Voice, No Airway Compromise Head: Atraumatic, Normocephalic Neck: Normal Inspection, Supple, Non-Tender, Full Range of Motion Respiratory/Chest: No Respiratory Distress, No Accessory Muscle Use Extremities: Normal Capillary Refill, Limited Range of Motion (Left middle finger) Neurological: Alert, Oriented, Normal Cognition Psychiatric: Normal Affect, Normal Mood Skin Exam: Warm, Dry, Intact, Normal Color, No Rash Lymphatic: No Adenopathy Course - Vital Signs Text/Narrative:: 5-year-old female with an injury to her left middle finger that occurred 2 days ago. Patient dropped the chest sized tool box that he was she was helping her father move on her finger. Patient states she did feel a crunching sound when this occurred. The finger has become more swollen and painful. On assessment. There is swelling noted to the middle portion of the finger. Patient has decreased active range of motion flexing, extending and moving the finger laterally and medially. Patient states that when she pushes on the painful area she feels a crunching. I have ordered an x-ray. Last Recorded V/S: Last Vital Signs Temp 97.5 F 07/31/20 11:03 Pulse 90 07/31/20 11:03 Resp 16 07/31/20 11:03 BP 130/88 07/31/20 11:03 Pulse Ox 99 07/31/20 11:03 - Orders/Labs/Meds Orders: Active Orders 24 hr Category Date Time Status Fingers Third Digit Lt F2 [CR] Stat Exams 07/31/20 11:27 Taken - Radiology Interpretation Free Text/Narrative:: Xray of left middle finger was reviewed by myself and Dr. Rajan, and no acute fracture is appreciated. - Re-Assessments/Exams Free Text/Narrative Re-Assessment/Exam: 07/31/20 12:41 Pt will be discharged to home. Departure - Departure Time of Disposition: 12:41 Disposition: Home, Self-Care 01 Condition: Good Clinical Impression: Injury of left middle finger Qualifiers: Encounter type: initial encounter Qualified Code(s): S69.92XA - Unspecified injury of left wrist, hand and finger(s), initial encounter - Discharge Information Instructions: Pain Medicine Instructions, [id number] Referrals: Jeanne Romero PARACHUTE OFFICER [Primary Care Provider] - Forms: ED Department Discharge Additional Instructions: You were seen in the emergency department today with complaints of injury to the left middle finger after dropping a chest sized toolbox on it two days ago. Xrays were completed and there is no acute fracture appreciated. Your finger was placed in a splint and you can keep this on during the day for comfort. Ice the finger three times daily for twenty minutes at a time. Elevate it as much as possible. Recommend that you take Tylenol 650mg and then alternate with ibuprofen 600mg every four hours for the next 48 hours. If your finger is not getting better by the middle of next week, recommend that you follow up with your primary care provider for further evaluation. Sepsis Event Note (ED) - Evaluation Sepsis Screening Result: No Definite Risk - Focused Exam Vital Signs: Vital Signs Temp Pulse Resp BP Pulse Ox 07/31/20 11:03 97.5 F 90 16 130/88 99 - My Orders Last 24 Hours: My Active Orders 07/31/20 11:27 Fingers Third Digit Lt F2 [CR] Stat - Assessment/Plan Last 24 Hours: My Active Orders 07/31/20 11:27 Fingers Third Digit Lt F2 [CR] Stat
--- NOTE | 2020-07-31 16:00 | CR ---
Left third finger: Multiple views centered to the left third finger were obtained. Comparison: No prior finger study is available. Joint spaces are maintained. No acute fracture or other bony abnormality is appreciated. Impression: 1. Nothing acute is seen on left third finger study. Diagnostic code #1
== END 2020-07-31 12:52 | disposition home or self-care (01) ==
LOC: JD.ED 10:57
DX: S69.92XA Unspecified injury of left wrist, hand and finger(s), initial encounter (principal); Z88.8 Allergy status to other drugs, medicaments and biological substances; Z72.0 Tobacco use; W20.8XXA Other cause of strike by thrown, projected or falling object, initial encounter
CPT/HCPCS: 73140-26-F2; 73140-F2; 99282; 99283

== ENCOUNTER 2020-11-03 10:15 | Emergency (ER) | payer BC, MEDICAID ==
[2020-11-03 10:35] VITALS: PULSE 86
--- NOTE | 2020-11-03 11:12 | EDM.PDOC ---
ED HPI GENERAL MEDICAL PROBLEM - General Chief Complaint: General Stated Complaint: SIDE EFFECTS FROM COVID VACCINE Time Seen by Provider: 11/03/20 10:31 Source of Information: Reports: Patient History Limitations: Reports: No Limitations - History of Present Illness INITIAL COMMENTS - FREE TEXT/NARRATIVE: The patient presents for not feeling well. She got her second COVID 19 shot and she is not feeling good. She says she has a burning feeling over her body. She has some tightness in her chest. It feels like her heart is pounding hard. She feels like she has a fever but her temp was good here at 98.9. She has some mild shortness of breath. She has no abdominal pain, nausea or vomiting. She had COVID 19 in March. She did have some symptoms with the first COVID shot but not this bad. Onset: Gradual Duration: Day(s): (Yesterday) Location: Reports: Generalized Quality: Reports: Burning Severity: Moderate Improves with: Reports: None Worsens with: Reports: None Associated Symptoms: Reports: Chest Pain, Fever/Chills, Shortness of Breath. Denies: Cough, Headaches, Nausea/Vomiting - Related Data Allergies Allergy/AdvReac Type Severity Reaction Status Date / Time progesterone Allergy Intermediate Hives Verified 11/03/20 10:29 Home Meds: Home Meds Venlafaxine HCl [Venlafaxine ER] 37.5 mg PO DAILY 06/26/20 [History] hydrOXYzine HCL [hydrOXYzine] 25 mg PO TID PRN 06/26/20 [History] Rizatriptan Benzoate [Rizatriptan] 10 mg PO 08/16/20 [History] Topiramate 25 mg PO 08/16/20 [History] ondansetron HCL [Ondansetron HCl] 4 mg PO 08/16/20 [History] Past Medical History - Past Health History Medical/Surgical History: Denies Medical/Surgical History HEENT History: Reports: Impaired Vision Other HEENT History: COUGH, SOB, BODY ACHES Cardiovascular History: Reports: None Respiratory History: Reports: None Gastrointestinal History: Reports: GERD Other Gastrointestinal History: epigastric pain Genitourinary History: Reports: None 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: , Other (See Below) Other BARREL HANDLER History: TUBES TIED 09/2017 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 History: Reports: None Neurological History: Reports: None Psychiatric History: Reports: Anxiety, Depression, PTSD Endocrine/Metabolic History: Reports: None Hematologic History: Reports: None Immunologic History: Reports: None Oncologic (Cancer) History: Reports: None Dermatologic History: Reports: Other (See Below) Other Dermatologic History: cyst removal from hand - Infectious Disease History Infectious Disease History: Reports: None, Novel Coronavirus Other Infectious Disease History: COVID Apr 2020 - Past Surgical History Head Surgeries/Procedures: Reports: None GI Surgical History: Reports: Cholecystectomy Female Surgical History: Reports: Tubal Ligation 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 Surgical History: Reports: Arthroscopic Knee, Other (See Below) Other 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 Surgeries/Procedures:: ganglian cyst removal of hand Social & Family History - Family History Family Medical History: No Pertinent Family History - Tobacco Use Tobacco Use Status *Q: Current Every Day Tobacco User Years of Tobacco use: 10 Packs/Tins Daily: 0.2 - Caffeine Use Caffeine Use: Reports: None - Recreational Drug Use Recreational Drug Use: No - Living Situation & Occupation Living situation: Reports: Single, with Family Occupation: Employed ED ROS GENERAL - Review of Systems Review Of Systems: See Below Constitutional: Reports: Fever, Chills HEENT: Reports: No Symptoms Respiratory: Reports: Shortness of Breath. Denies: Cough Cardiovascular: Reports: Chest Pain Endocrine: Reports: No Symptoms GI/Abdominal: Reports: No Symptoms : Reports: No Symptoms 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: Reports: Muscle Pain (Burning) ED EXAM, GENERAL - Physical Exam Exam: See Below Exam Limited By: No Limitations General Appearance: Alert, No Apparent Distress Ears: Normal External Exam Head: Atraumatic, Normocephalic Neck: Normal Inspection Respiratory/Chest: No Respiratory Distress, Lungs Clear, Normal Breath Sounds Cardiovascular: Regular Rate, Rhythm, No Edema, No Murmur GI/Abdominal: Soft, Non-Tender, No Organomegaly, No Mass Back Exam: Normal Inspection Extremities: Normal Inspection Course - Vital Signs Last Recorded V/S: Last Vital Signs Temp 98.9 F 11/03/20 10:29 Pulse 86 11/03/20 10:29 Resp 18 11/03/20 10:29 BP 118/64 11/03/20 10:29 Pulse Ox 97 11/03/20 10:29 - Re-Assessments/Exams Free Text/Narrative Re-Assessment/Exam: 11/03/20 11:12 She is having symptoms from the COVID 19 vaccine. Departure - Departure Time of Disposition: 11:15 Disposition: Home, Self-Care 01 Condition: Good Clinical Impression: Vaccine reaction Qualifiers: Encounter type: initial encounter Qualified Code(s): T50.Z95A - Adverse effect of other vaccines and biological substances, initial encounter - Discharge Information *PRESCRIPTION DRUG MONITORING PROGRAM REVIEWED*: Not Applicable *COPY OF PRESCRIPTION DRUG MONITORING REPORT IN PATIENT REGIS: Not Applicable Referrals: Jeanne Romero RIVET HEATER [Primary Care Provider] - Additional Instructions: This is a normal immune response to the vaccine. This is more severe because you have had COVID 19 in the past. Drink plenty of fluids. Take tylenol or motrin for pain. Get plenty of rest. Please return if you are worse. Sepsis Event Note (ED) - Evaluation Sepsis Screening Result: No Definite Risk - Focused Exam Vital Signs: Vital Signs Temp Pulse Resp BP Pulse Ox 11/03/20 10:29 98.9 F 86 18 118/64 97
[2020-11-03 11:30] VITALS: BP 118/68
== END 2020-11-03 11:27 | disposition home or self-care (01) ==
LOC: JD.ED 10:15
DX: R07.89 Other chest pain (principal); T50.B95A Adverse effect of other viral vaccines, initial encounter; Z88.8 Allergy status to other drugs, medicaments and biological substances; Z79.899 Other long term (current) drug therapy; Z72.0 Tobacco use
CPT/HCPCS: 99282; 99283

== ENCOUNTER 2021-05-22 11:57 | Emergency (ER) | payer OTHER, MEDICAID ==
[2021-05-22 12:31] VITALS: BP 133/84; PULSE 83
[2021-05-22] MEDS ORDERED: Rabies Immune Globulin PF 150 Units/ML 2 ML SDV IM ONE (12:54)
[2021-05-22] MEDS ORDERED: Rabies Vaccine (Avian) 2.5 Unit Inj Kit IM ONE (12:54)
[2021-05-22] MEDS ORDERED: Rabies Immune Globulin/PF 300 UNIT/ML 5 ML SDV IM ONE (13:00)
--- NOTE | 2021-05-22 13:01 | EDM.PDOC ---
ED HPI GENERAL MEDICAL PROBLEM - General Chief Complaint: Bite:Animal, Insect Stated Complaint: cat bite Time Seen by Provider: 05/22/21 12:18 Source of Information: Reports: Patient, RN Notes Reviewed History Limitations: Reports: No Limitations - History of Present Illness INITIAL COMMENTS - FREE TEXT/NARRATIVE: Patient is a 26-year-old female who presents to the ER for evaluation of a cat bite. 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 States that she was evaluated at the walk-in clinic and was given a prescription for antibiotics but they directed her here for the rabies series as the cat did not appear to be any ones house cat as it did not have a collar. Patient states she is up-to-date on her T dap vaccination. The cat was not able to be caught at this time as it shot out of the garage as soon as they open the door. Patient denies any other sick-like symptoms, fever/chills, cough/shortness of breath, nausea/vomiting/diarrhea. Right Hand Pain Score (Numeric/FACES): 2 - Related Data Allergies Allergy/AdvReac Type Severity Reaction Status Date / Time progesterone Allergy Severe Hives Verified 05/22/21 12:23 Home Meds: Home Meds Venlafaxine HCl [Venlafaxine ER] 37.5 mg PO DAILY 06/26/20 [History] hydrOXYzine HCL [hydrOXYzine] 25 mg PO TID PRN 06/26/20 [History] Rizatriptan Benzoate [Rizatriptan] 10 mg PO 08/16/20 [History] Topiramate 25 mg PO 08/16/20 [History] Past Medical History - Past Health History Medical/Surgical History: Denies Medical/Surgical History HEENT History: Reports: Impaired Vision Other HEENT History: COUGH, SOB, BODY ACHES Cardiovascular History: Reports: None Respiratory History: Reports: None Gastrointestinal History: Reports: GERD Other Gastrointestinal History: epigastric pain Genitourinary History: Reports: None 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: , Other (See Below) Other SENIOR SYSTEM OPERATOR History: TUBES TIED 09/2017 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 History: Reports: None Neurological History: Reports: None Psychiatric History: Reports: Anxiety, Depression, PTSD Endocrine/Metabolic History: Reports: None Hematologic History: Reports: None Immunologic History: Reports: None Oncologic (Cancer) History: Reports: None Dermatologic History: Reports: Other (See Below) Other Dermatologic History: cyst removal from hand - Infectious Disease History Infectious Disease History: Reports: None, Novel Coronavirus Other Infectious Disease History: COVID Apr 2020 - Past Surgical History Head Surgeries/Procedures: Reports: None GI Surgical History: Reports: Cholecystectomy Female Surgical History: Reports: Tubal Ligation 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 Surgical History: Reports: Arthroscopic Knee, Other (See Below) Other 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 Surgeries/Procedures:: ganglian cyst removal of hand Social & Family History - Family History Family Medical History: No Pertinent Family History - Tobacco Use Tobacco Use Status *Q: Current Every Day Tobacco User Years of Tobacco use: 8 Packs/Tins Daily: 0.1 - Caffeine Use Caffeine Use: Reports: Coffee - Recreational Drug Use Recreational Drug Use: No - Living Situation & Occupation Living situation: Reports: Single, with Family Occupation: Employed ED ROS GENERAL - Review of Systems Review Of Systems: Comprehensive ROS is negative, except as noted in HPI. ED EXAM, ANIMAL BITE - Physical Exam Exam: See Below Exam Limited By: No Limitations General Appearance: Alert, WD/WN, No Apparent Distress Respiratory/Chest: No Respiratory Distress, Lungs Clear, Normal Breath Sounds, No Accessory Muscle Use, Chest Non-Tender Cardiovascular: Normal Peripheral Pulses, Regular Rate, Rhythm, No Edema Peripheral Pulses: 2+: Radial (L), Radial (R) Extremities: Normal Range of Motion, Normal Capillary Refill Neurological: Alert, Oriented, Normal Cognition, No Motor/Sensory Deficits Psychiatric: Normal Affect, Normal Mood Skin Exam: Normal Color, Warm/Dry, Other (cat bite to right hand) Course - Vital Signs Last Recorded V/S: Last Vital Signs Temp 97.8 F 05/22/21 12:28 Pulse 83 05/22/21 12:28 Resp BP 133/84 05/22/21 12:28 Pulse Ox 100 05/22/21 12:28 - Orders/Labs/Meds Meds: Medications Discontinued Medications Generic Name Dose Route Start Last Admin Trade Name Freq PRN Reason Stop Dose Admin Rabies Immune Globulin 1,920 unit 05/22/21 12:54 Rabies Immune Globulin Pf 150 Units/Ml 2 Ml Sdv IM 05/22/21 12:55 .ONCE ONE Rabies Vaccine 2.5 unit 05/22/21 12:54 Rabies Vaccine (Matty) 2.5 Unit Inj Kit IM 05/22/21 12:55 .ONCE ONE - Re-Assessments/Exams Free Text/Narrative Re-Assessment/Exam: 05/22/21 13:02 Due to the cat being a stray and not being overly quarantined and it being aggressive and biting her, we will go ahead and do rabies immunoglobulin and vaccine at today's visit. Patient verbalized understanding. Departure - Departure Time of Disposition: 13:07 Disposition: Home, Self-Care 01 Condition: Good Clinical Impression: Cat bite involving extremity, Need for prophylactic vaccination against rabies - Discharge Information *PRESCRIPTION DRUG MONITORING PROGRAM REVIEWED*: No *COPY OF PRESCRIPTION DRUG MONITORING REPORT IN PATIENT REGIS: No Instructions: Animal Bite, Adult, [id number] Referrals: Jeanne Romero, [employer] [Primary Care Provider] - Additional Instructions: You were evaluated in the ER today for your cat bite, and need for the rabies vaccine. Your series was started today, and you will require injections on May 25, May 29, and June 05, 2021. It is important that you complete the series, unless the stray cat that bit you on the hand, can be captured, and tested for rabies. Please take antibiotics as prescribed by the outlying clinic you visited initially today. Do not hesitate to return to the ER at any time if symptoms change or worsen. Sepsis Event Note (ED) - Focused Exam Vital Signs: Vital Signs Temp Pulse BP Pulse Ox 05/22/21 12:28 97.8 F 83 133/84 100
== END 2021-05-22 13:55 | disposition home or self-care (01) ==
LOC: JD.ED 11:57
DX: S61.451A Open bite of right hand, initial encounter (principal); K21.9 Gastro-esophageal reflux disease without esophagitis; Z86.16 Personal history of COVID-19; Z72.0 Tobacco use; Z23 Encounter for immunization; W55.01XA Bitten by cat, initial encounter
CPT/HCPCS: 90375; 90471; 90675; 96372; 99283

== ENCOUNTER 2021-11-14 13:03 | Emergency (ER) | payer MEDICAID ==
[2021-11-14 13:24] VITALS: BP 123/74; PULSE 84
[2021-11-14] MEDS ORDERED: Ibuprofen 600 MG Tab PO ONE (13:51)
== END 2021-11-14 14:36 | disposition home or self-care (01) ==
LOC: JD.ED 13:03
DX: S92.512A Displaced fracture of proximal phalanx of left lesser toe(s), initial encounter for closed fracture (principal); Z88.8 Allergy status to other drugs, medicaments and biological substances; Z86.16 Personal history of COVID-19; W22.09XA Striking against other stationary object, initial encounter
CPT/HCPCS: 73630; 99283; A9270; 99282

== ENCOUNTER 2023-01-05 12:58 | Emergency (ER) | payer MEDICAID ==
[2023-01-05] MEDS: Sodium Chloride 0.9% 10 ML Syringe FLUSH PRN ×2 (13:27→14:20)
[2023-01-05 13:32] LABS: BASOPHILS ABSOLUTE AUTO 0.04 K/mm3 (0.01-0.08); BASOPHILS PERCENT AUTO 0.4 % (0.1-1.2); EOSINOPHILS ABSOLUTE AUTO 0.06 K/mm3 (0.04-0.36); EOSINOPHILS PERCENT AUTO 0.6 (0.7-5.8); HEMATOCRIT 41.5 % (34.1-44.9); HEMOGLOBIN 13.8 gm/dl (11.2-15.7); IMMATURE GRAN ABSOLUTE AUTO 0.05 K/mm3 (0.00-0.10); IMMATURE GRAN PERCENT AUTO 0.5 % (<=1.0); LYMPHOCYTES ABSOLUTE AUTO 2.27 K/mm3 (1.18-3.74); LYMPHOCYTES PERCENT AUTO 23.4 % (19.3-51.7); MEAN CORPUSCULAR HEMOGLOBIN 29.1 pg (25.6-32.2); MEAN CORPUSCULAR HGB CONC 33.3 g/dl (32.2-35.5); MEAN CORPUSCULAR VOLUME 87.4 fl (79.4-94.8); MEAN PLATELET VOLUME 9.1 fl (9.4-12.3); MONOCYTES ABSOLUTE AUTO 0.68 K/mm3 (0.24-0.36); NEUTROPHILS ABSOLUTE AUTO 6.61 K/mm3 (1.56-6.13); NEUTROPHILS PERCENT AUTO 68.1 % (34.0-71.1); PLATELET COUNT,PLT 371 K/mm3 (182-369); RED BLOOD CELL COUNT 4.75 M/mm3 (3.98-5.22); WHITE BLOOD CELL COUNT,WBC 9.71 K/mm3 (3.98-10.04)
[2023-01-05] MEDS ORDERED: Ondansetron 4 MG/2 ML SDV IVPUSH ONE (13:34)
[2023-01-05] MEDS ORDERED: Sodium Chloride 0.9% 1,000 ML IV STA (13:34)
[2023-01-05] MEDS ORDERED: HYDROmorphone 0.5 MG/0.5 ML Syringe IVPUSH ONE ×2 (13:34→14:43)
[2023-01-05 13:54] LABS: A/G RATIO 0.8 (1-2); ALBUMIN 3.8 g/dl (3.4-5.0); ANION GAP 14.9 (5-15); BILIRUBIN TOTAL 0.3 mg/dL (0.2-1.0); BUN/CREATININE RATIO 14.3 (14-18); C-REACTIVE PROTEIN 1.2 mg/dL (<1.0); CALCIUM 9.1 mg/dL (8.5-10.1); CREATININE 0.7 mg/dL (0.55-1.02); EST CRCL DRUG DOSING (CG) 108.63 mL/min; POTASSIUM,K 3.9 mEq/L (3.5-5.1); PROTEIN TOTAL,TP 8.4 g/dl (6.4-8.2)
[2023-01-05] MEDS ORDERED: Iopamidol 612 MG/ML 100 ML Bottle IVPUSH ONE (14:20)
[2023-01-05 14:37] LABS: APPEARANCE,URINE CLEAR (Clear); BILIRUBIN,URINE NEGATIVE (Negative); COLOR,URINE YELLOW (Yellow); GLUCOSE,URINE NEGATIVE (Negative); KETONES,URINE NEGATIVE (Negative); LEUKOCYTE ESTERASE,URINE TRACE (Negative); NITRITE,URINE NEGATIVE (Negative); OCCULT BLOOD,URINE NEGATIVE (Negative); PH,URINE 6.5 (5.0-8.0); PROTEIN,URINE NEGATIVE (Negative); UROBILINOGEN,URINE 0.2 (0.2-1.0)
[2023-01-05 14:45] LABS: BACTERIA,URINE FEW /hpf (FEW); MUCUS,URINE FEW /hpf (FEW); RBC,URINE 0-5 /hpf (0-5); SQUAMOUS EPITHELIAL CELLS,UR 0-5 /hpf (0-5); WBC,URINE 0-5 /hpf (0-5)
[2023-01-05] MEDS ORDERED: Ketorolac 30 MG/ML SDV IVPUSH ONE (16:16)
[2023-01-05 17:40] VITALS: BP 126/79; PULSE 64
== END 2023-01-05 17:00 | disposition home or self-care (01) ==
LOC: JD.ED 12:58
DX: N83.201 Unspecified ovarian cyst, right side (principal); K21.9 Gastro-esophageal reflux disease without esophagitis; Z79.899 Other long term (current) drug therapy; Z88.8 Allergy status to other drugs, medicaments and biological substances; Z86.16 Personal history of COVID-19
CPT/HCPCS: 36415; 74177; 76830; 80053; 81001; 84703; 85025; 86140; 87086; 96374; 96375; 96376; 99284; J1170; J2405; J3490; J7030; Q9967

== ENCOUNTER 2023-12-28 15:43 | Emergency (ER) | payer MEDICAID ==
[2023-12-28 16:50] LABS: BASOPHILS ABSOLUTE AUTO 0.1 K/mm3 (0.0-0.2); BASOPHILS PERCENT AUTO 0.5 % (0.0-1.0); EOSINOPHILS ABSOLUTE AUTO 0.1 K/mm3 (0.0-0.4); EOSINOPHILS PERCENT AUTO 1.1 % (0.0-6.0); IMMATURE GRAN ABSOLUTE AUTO 0.04 K/mm3 (0.00-0.05); IMMATURE GRAN PERCENT AUTO 0.4 % (0.0-0.4); LYMPHOCYTES ABSOLUTE AUTO 2.4 K/mm3 (1.0-4.8); LYMPHOCYTES PERCENT AUTO 25.4 % (24.0-44.0); MEAN CORPUSCULAR HEMOGLOBIN 27.7 pg (28.0-32.0); MEAN CORPUSCULAR HGB CONC 32.6 g/dl (32.0-36.0); MEAN CORPUSCULAR VOLUME 85.1 fl (83.0-99.0); MEAN PLATELET VOLUME 9.5 fl (9.4-12.3); MONOCYTES ABSOLUTE AUTO 0.6 K/mm3 (0.0-0.8); MONOCYTES PERCENT AUTO 6.8 % (0.0-8.0); NEUTROPHILS ABSOLUTE AUTO 6.1 K/mm3 (1.8-7.7); NEUTROPHILS PERCENT AUTO 65.8 % (41.0-71.0); PLATELET COUNT,PLT 320 K/mm3 (150-400); RED BLOOD CELL COUNT 5.05 M/mm3 (4.10-5.30); WHITE BLOOD CELL COUNT,WBC 9.27 K/mm3 (3.9-11.3)
[2023-12-28 16:51] LABS: APPEARANCE,URINE CLEAR (Clear); BILIRUBIN,URINE NEGATIVE (Negative); COLOR,URINE YELLOW (Yellow); GLUCOSE,URINE NEGATIVE (Negative); KETONES,URINE NEGATIVE (Negative); LEUKOCYTE ESTERASE,URINE NEGATIVE (Negative); NITRITE,URINE NEGATIVE (Negative); OCCULT BLOOD,URINE NEGATIVE (Negative); PH,URINE 6.5 (5.0-8.0); PROTEIN,URINE NEGATIVE (Negative); UROBILINOGEN,URINE 0.2 (0.2-1.0)
[2023-12-28] MEDS: HYDROmorphone 0.5 MG/0.5 ML Syringe IVPUSH ONE (17:00)
[2023-12-28] MEDS: Sodium Chloride 0.9% 10 ML Syringe FLUSH PRN (17:00)
[2023-12-28] MEDS: Ondansetron 4 MG/2 ML SDV IVPUSH ONE (17:00)
[2023-12-28] MEDS: Sodium Chloride 0.9% 1,000 ML IV STA (17:00)
[2023-12-28 17:10] LABS: A/G RATIO 0.9 (1-2); ALBUMIN 3.8 g/dl (3.4-5.0); BILIRUBIN TOTAL 0.3 mg/dL (0.2-1.0); BUN/CREATININE RATIO 15.7 (14-18); C-REACTIVE PROTEIN 1.64 mg/dL (<0.30); CALCIUM 9.7 mg/dL (8.5-10.1); CREATININE 0.7 mg/dL (0.55-1.02); EST CRCL DRUG DOSING (CG) 107.67 mL/min; PROTEIN TOTAL,TP 8.1 g/dl (6.4-8.2)
[2023-12-28] MEDS: Iopamidol 612 MG/ML 100 ML Bottle IVPUSH ONE (17:33)
[2023-12-28 19:13] VITALS: BP 103/81; PULSE 90
== END 2023-12-28 18:35 | disposition home or self-care (01) ==
LOC: JD.ED 15:43
DX: K63.89 Other specified diseases of intestine (principal); Z86.16 Personal history of COVID-19; Z79.899 Other long term (current) drug therapy; Z88.8 Allergy status to other drugs, medicaments and biological substances
CPT/HCPCS: 36415; 74177; 80053; 81003; 81025; 83690; 85025; 86140; 96361; 96374; 96375; 99284; J1170; J2405; J3490; J7030; Q9967

== ENCOUNTER 2024-06-30 19:54 | Emergency (ER) | payer MEDICAID ==
[2024-06-30 20:17] VITALS: BP 144/78; PULSE 100
== END 2024-06-30 22:10 | disposition home or self-care (01) ==
LOC: JD.ED 19:54
DX: J10.1 Influenza due to other identified influenza virus with other respiratory manifestations (principal); Z86.16 Personal history of COVID-19; Z90.49 Acquired absence of other specified parts of digestive tract; Z88.8 Allergy status to other drugs, medicaments and biological substances
CPT/HCPCS: 87428-QW; 99283

== ENCOUNTER 2024-12-14 21:53 | Emergency (ER) | payer MEDICAID, OTHER ==
[2024-12-14 22:40] VITALS: BP 117/71; PULSE 90
== END 2024-12-15 00:05 | disposition left against medical advice (07) ==
LOC: JD.ED 21:53
DX: Z53.21 Procedure and treatment not carried out due to patient leaving prior to being seen by health care provider (principal)

== ENCOUNTER 2024-12-19 23:30 | Emergency (ER) | payer OTHER ==
[2024-12-20 01:22] VITALS: BP 129/70; PULSE 84
== END 2024-12-20 01:15 | disposition home or self-care (01) ==
LOC: JD.ED 23:30
DX: S93.402A Sprain of unspecified ligament of left ankle, initial encounter (principal); S93.602A Unspecified sprain of left foot, initial encounter; Z79.899 Other long term (current) drug therapy; Z88.8 Allergy status to other drugs, medicaments and biological substances; Z86.16 Personal history of COVID-19; Z90.49 Acquired absence of other specified parts of digestive tract; W01.0XXA Fall on same level from slipping, tripping and stumbling without subsequent striking against object, initial encounter
CPT/HCPCS: 73610; 73620; 96372; 99283; J1171

== ENCOUNTER 2025-01-03 00:44 | Emergency (ER) | payer OTHER ==
[2025-01-03] MEDS ORDERED: Sodium Chloride 0.9% 10 ML Syringe FLUSH PRN (01:01)
[2025-01-03] MEDS ORDERED: Naloxone 0.4 MG/ML SDV IVPUSH PRN (01:02)
[2025-01-03 01:19] LABS: APPEARANCE,URINE SLT CLOUDY (Clear); BASOPHILS ABSOLUTE AUTO 0.1 K/mm3 (0.0-0.2); BASOPHILS PERCENT AUTO 0.5 % (0.0-1.0); EOSINOPHILS ABSOLUTE AUTO 0.1 K/mm3 (0.0-0.4); EOSINOPHILS PERCENT AUTO 1.1 % (0.0-6.0); GLUCOSE,URINE NEGATIVE (Negative); IMMATURE GRAN ABSOLUTE AUTO 0.04 K/mm3 (0.00-0.05); IMMATURE GRAN PERCENT AUTO 0.4 % (0.0-0.4); LYMPHOCYTES ABSOLUTE AUTO 3.2 K/mm3 (1.0-4.8); LYMPHOCYTES PERCENT AUTO 30.6 % (24.0-44.0); MEAN PLATELET VOLUME 9.2 fl (9.4-12.3); MONOCYTES ABSOLUTE AUTO 0.8 K/mm3 (0.0-0.8); MONOCYTES PERCENT AUTO 7.6 % (0.0-8.0); NEUTROPHILS ABSOLUTE AUTO 6.2 K/mm3 (1.8-7.7); NEUTROPHILS PERCENT AUTO 59.8 % (41.0-71.0); NRBC ABSOLUTE 0.00 (0.00-0.02); NRBC PERCENT 0.0 % (0.0-0.2); OCCULT BLOOD,URINE NEGATIVE (Negative); PLATELET COUNT,PLT 330 K/mm3 (150-400); RED BLOOD CELL COUNT 4.57 M/mm3 (4.10-5.30); WHITE BLOOD CELL COUNT,WBC 10.36 K/mm3 (3.9-11.3)
[2025-01-03 01:36] LABS: SQUAMOUS EPITHELIAL CELLS,UR 0-5 /hpf (0-5)
[2025-01-03 01:40] LABS: A/G RATIO 0.9 (1-2); ALANINE AMINOTRANSFERASE,ALT 35.0 U/L (14-59); ASPARTATE AMNIOTRANSFERASE,AST 16.0 U/L (15-37); BILIRUBIN TOTAL 0.3 mg/dL (0.2-1.0); BLOOD UREA NITROGEN,BUN 9.0 mg/dL (7-18); CARBON DIOXIDE,CO2 30.0 mEq/L (21-32); CHLORIDE,CL 106.0 mEq/L (98-107); CREATININE 0.7 mg/dL (0.55-1.02); EST CRCL DRUG DOSING (CG) 106.7 mL/min; ESTIMATED GFR 120.0 mL/min (>60); GLUCOSE RANDOM 79.0 mg/dL (70-99); POTASSIUM,K 3.7 mEq/L (3.5-5.1); PROTEIN TOTAL,TP 7.6 g/dl (6.4-8.2); SODIUM,NA 142.0 mEq/L (136-145)
[2025-01-03 01:43] LABS: LACTIC ACID 0.3 mmol/L (0.4-2.0)
[2025-01-03] MEDS: Iopamidol 612 MG/ML 100 ML Bottle IVPUSH ONE (02:32)
[2025-01-03] MEDS: Sodium Chloride 0.9% 10 ML Syringe FLUSH PRN (02:32)
[2025-01-03 03:23] VITALS: BP 113/65; PULSE 75
== END 2025-01-03 03:19 | disposition home or self-care (01) ==
LOC: JD.ED 00:44
DX: R10.12 Left upper quadrant pain (principal); Z88.8 Allergy status to other drugs, medicaments and biological substances; Z79.899 Other long term (current) drug therapy; Z86.16 Personal history of COVID-19; Z90.49 Acquired absence of other specified parts of digestive tract
CPT/HCPCS: 36415; 74177; 80053; 81001; 83605; 84703; 85025; 96374; 99284; Q9967; J1171

== ENCOUNTER 2025-02-16 07:16 | Day surgery (SDC) | payer OTHER ==
[2025-02-16] MEDS ORDERED: propofoL 500 MG/50 ML 50 ML ONE (07:19)
[2025-02-16] MEDS ORDERED: Propofol 200 MG/20 ML SDV ONE (07:19)
[2025-02-16] MEDS ORDERED: Ondansetron 4 MG/2 ML SDV ONE (07:20)
[2025-02-16] MEDS ORDERED: Dexamethasone 4 MG/ML 5 ML MDV ONE (07:20)
[2025-02-16] MEDS ORDERED: dexmedeTOMIDine HCl 200 MCG/2 ML SDV ONE (07:20)
[2025-02-16] MEDS ORDERED: fentaNYL 250 MCG/5 ML SDV ONE (07:21)
[2025-02-16] MEDS ORDERED: Ketamine HCL/NACL, ISO-OSM 50 MG/5 ML Syringe ONE (07:21)
[2025-02-16] MEDS ORDERED: Phenylephrine 1% 10 MG/ML SDV ONE (07:22)
[2025-02-16 07:27] LABS: APPEARANCE,URINE CLEAR (Clear); GLUCOSE,URINE NEGATIVE (Negative); OCCULT BLOOD,URINE NEGATIVE (Negative)
[2025-02-16] MEDS: Lactated Ringers 1,000 ML IV SCH (07:30)
[2025-02-16 07:32] LABS: SQUAMOUS EPITHELIAL CELLS,UR 0-5 /hpf (0-5)
[2025-02-16] MEDS ORDERED: Sodium Chloride 0.9% 10 ML Syringe FLUSH PRN (08:07)
[2025-02-16] MEDS ORDERED: Ondansetron 4 MG/2 ML SDV IVPUSH PRN ×2 (08:37→13:27)
[2025-02-16] MEDS ORDERED: fentaNYL 100 MCG/2 ML SDV IVPUSH PRN ×2 (08:37→13:27)
[2025-02-16] MEDS ORDERED: Sodium Chloride 0.9% 10 ML Syringe FLUSH SCH (09:00)
[2025-02-16] MEDS: Ketorolac 30 MG/ML SDV IVPUSH PRN (10:18)
[2025-02-16 12:56] VITALS: BP 123/78; PULSE 68
== END 2025-02-16 12:20 | disposition home or self-care (01) ==
LOC: JD.SDS 07:16
PROVIDERS: ATTEND Obstetrics & Gynecology
DX: N83.8 Other noninflammatory disorders of ovary, fallopian tube and broad ligament (principal); E66.9 Obesity, unspecified; Z68.35 Body mass index [BMI] 35.0-35.9, adult; Z91.048 Other nonmedicinal substance allergy status
CPT/HCPCS: 58662; 81001; 81025; A9270; J0665; J1100; J1885; J2371; J2405; J2704; J3010; J7120; 00840; J1171; J3490